=== PATIENT | female | born 1955 | race Caucasian/White ===

== ENCOUNTER → 2020-03-31 12:13 | Outpatient (CLI) | payer OTHER, SELFPAY ==
--- NOTE | ~2020-03-31 | DEXA_ITS ---
Bone Density Report Name: Hamida Dalton Age: 64 Sex: Female Ethnicity: White Date of : 1955 Indication: osteopenia; postmenopausal Referring Provider: Osvaldo Singh Study: Bone densitometry was performed. Exam Date: March 31, 2020 Accession number: [id number] Bone Density: Region BMD T-score Z-score Classification AP Spine (L1-L4) 0.833 -1.9 -0.3 Osteopenia Femoral Neck (Left) 0.561 -2.6 -1.1 Osteoporosis Total Hip (Left) 0.783 -1.3 -0.1 Osteopenia Femoral Neck (Right) 0.603 -2.2 -0.8 Osteopenia Total Hip (Right) 0.811 -1.1 0.1 Osteopenia Total Hip Mean 0.797 -1.2 0.0 Osteopenia World Health Organization criteria for BMD impression classify patients as: Normal (T-score at or above -1.0), Osteopenia (T-score between -1.0 and -2.5), or Osteoporosis (T-score at or below -2.5). 10-year Fracture Risk: FRAX not reported because: Some T-score for Spine Total or Hip Total or Femoral Neck at or below -2.5 Previous Exams: Region Exam Age BMD T-score BMD Change BMD Change Date g/cm2 vs Baseline vs Previous AP Spine(L1-L4) 03/31/2020 64 0.833 -1.9 0.019 0.019 01/10/2018 62 0.813 -2.1 Total Hip(Left) 03/31/2020 64 0.783 -1.3 0.011 0.011 01/10/2018 62 0.772 -1.4 Total Hip(Right) 03/31/2020 64 0.811 -1.1 0.020 0.020 01/10/2018 62 0.790 -1.2 *Denotes significance at 95% confidence level, LSC for AP Spine = 0.022 g/cm2, LSC for Total Hip = 0.027 g/cm2 Clinical Information Provided by Patient: Has used the following medications: Boniva (i.e. ibandronate), Prolia (i.e. denosumab), Vitamin D, Calcium Patient maximum height was 71.75 Menopause Age: 56 Onset of menses at age 15 Number of children 3 Impression: The patient has osteoporosis, based on the Left Femoral Neck T-score. No significant bone loss was observed. Discussion: INCREASED RISK OF FRACTURE. BONE DENSITY IS UNDESIRABLY LOW AT ONE OR MORE SKELETAL SITES, CONSISTENT WITH POSTMENOPAUSAL OSTEOPOROSIS. This patient's lowest T-score meets the World Health Organization's (WHO) criteria for osteoporosis at one or more sites (T-score -2.5 or below). In untreated patients, the risk of osteoporotic fracture increases approximately two-fold for each 1.0 SD decrease in T-score. Low bone density is not the only risk factor for fracture; also consider factors such as patient's age, frailty or poor health, risk of falling, risk of inju
== END ==
PROVIDERS: PCP Family Medicine; Visit Provider Family Medicine
DX: M85.88 Other specified disorders of bone density and structure, other site (principal); M85.852 Other specified disorders of bone density and structure, left thigh; M85.851 Other specified disorders of bone density and structure, right thigh; M81.0 Age-related osteoporosis without current pathological fracture
CPT/HCPCS: 77080

== ENCOUNTER → 2020-04-17 12:40 | Outpatient (CLI) | payer OTHER, SELFPAY ==
--- NOTE | ~2020-04-17 | MM_ITS ---
EXAMINATION: MM screening gab BI w karen HISTORY: Screening mammogram TECHNIQUE: Craniocaudal and mediolateral oblique 3-D tomosynthesis images were obtained and synthetic 2-D images were generated. CAD analysis was submitted and interpreted. COMPARISON: 01/02/2016, 10/11/2014, 04/13/2013 bilateral digital screening mammogram examinations BREAST PARENCHYMAL COMPOSITION: The breasts are heterogeneously dense, which may obscure small masses FINDINGS: Approximately 3.4 x 5.8 mm mass is noted at mid depth in the mid to upper inner right breas t (craniocaudal Tomosynthesis image 40/69). Additional suggested 1 cm mass in the upper right breast (MLO Tomosynthesis image 25/69). Additional suspected 10 mm mass in the lower left breast (MLO Tomosynthesis image 29/66). Bilateral diagnostic mammography and complete bilateral breast ultrasound examination are recommended . IMPRESSION: 1. Bilateral breast masses are suggested 2. Bilateral diagnostic mammography and complete bilateral breast ultrasound examination are recommen ded BI-RADS Category 0: Incomplete: Needs additional imaging evaluation. Reviewed, dictated and finalized at location A. Y OUT CLERK IMPRESSION: 1. Bilateral breast masses are suggested 2. Bilateral diagnostic mammography and complete bilateral breast ultrasound ex amination are recommended BI-RADS Category 0: Incomplete: Needs additional imaging evaluation.
== END ==
PROVIDERS: PCP Family Medicine; Visit Provider Family Medicine
DX: Z12.31 Encounter for screening mammogram for malignant neoplasm of breast (principal); R92.8 Other abnormal and inconclusive findings on diagnostic imaging of breast
CPT/HCPCS: 77063; 77067

== ENCOUNTER → 2020-05-14 09:43 | Outpatient (CLI) | payer OTHER, SELFPAY ==
--- NOTE | ~2020-05-14 | MMUS_ITS ---
EXAMINATION: MM diagnostic mammo BI, US breast BI complete HISTORY: Bilateral breast masses reported on bilateral digital screening mammogram TECHNIQUE: Additional 3-D full-field ML and spot tomosynthesis images of both breasts were performed and synthetic 2-D images were generated. Rolled medial and lateral craniocaudal views of right breast . CAD analysis was submitted and interpreted. High resolution complete bilateral breast ultrasound wa s performed. COMPARISON: 04/17/2020 bilateral digital screening mammogram FINDINGS: MAMMOGRAPHIC FINDINGS: Bilateral benign calcifications are noted. Bilateral fibroglandular asymmetry. Previously reported 3.4 x 5.8 mm mass suggested at mid depth in the mid to upper inner right breast a ppears less distinct on these supplemental mammographic views. Heterogeneous dense stroma may obscure masses. Bilateral complete breast ultrasound examination there fore was performed. ULTRASOUND: Left breast 6:00 subareolar area: 5.4 x 9.2 mm parallel circumscribed hypoechoic lesion with evidence of some posterior enhancement, likely a cyst There is a prominent focal area of shadowing of the left breast at 9'clock 3 cm from nipple correspon ding to a heavily calcified fibroadenoma. There are scattered bilateral subcentimeter hypoechoic areas in each breast without suspicious purchasing internship al vascularity or shadowing. No apparent suspicious mass or shadowing of either breast is detected. IMPRESSION: 1. Probable benign findings 2. 6 month diagnostic bilateral mammogram and bilateral breast ultrasound follow-up is recommended BI-RADS category 3, probably benign findings. Reviewed, dictated and finalized at location A. HET MACHINE OPERATOR IMPRESSION: 1. Probable benign findings 2. 6 month diagnostic bilateral mammogram and bilateral breast ultrasound follo w-up is recommended BI-RADS category 3, probably benign findings.
== END ==
PROVIDERS: PCP Family Medicine; Visit Provider Physician Assistant
DX: R92.8 Other abnormal and inconclusive findings on diagnostic imaging of breast (principal)
CPT/HCPCS: 76641; 77066

== ENCOUNTER → 2020-12-29 14:15 | Outpatient (CLI) | payer OTHER, SELFPAY ==
--- NOTE | ~2020-12-29 | MMUS_ITS ---
EXAMINATION: MM diagnostic gab BI w karen, US breast BI complete HISTORY: Six-month follow-up of probable benign findings TECHNIQUE: ML, MLO and craniocaudal full field and spot 3-D tomosynthesis images of post breast were performed and synthetic 2-D images were generated. Bilateral rotated lateral cc views. CAD analysis w as submitted and interpreted. High resolution complete bilateral breast ultrasound including all 4 qu adrants and subareolar areas was performed. COMPARISON: 05/14/2020 diagnostic bilateral mammogram and bilateral complete breast ultrasound BREAST PARENCHYMAL COMPOSITION: The breasts are heterogeneously dense, which may obscure small masses . FINDINGS: MAMMOGRAPHIC FINDINGS: Stable fibroglandular asymmetry. Several benign calcifications. No interval suspicious mass or new architectural distortion, malignant calcification, skin thickening or retraction of either breast is detected. ULTRASOUND: No suspicious solid lesion or shadowing of either breast is detected. Right breast: 9:00 4 cm from nipple: 2.3 mm cyst 10:00 6 cm from nipple: 2.7 mm cyst 11:00 3 cm from nipple: Parallel circumscribed 3.7 x 2.9 x 5.5 mm sonolucency with through transmissi on posterior enhancement, consistent with cyst Subareolar 2.6 x 4.4 mm cyst Left breast: Parallel circumscribed 5.3 x 2.7 x 5.2 mm sonolucency with through transmission, consistent with cyst 7:00 2 cm from nipple: Parallel circumscribed 3.6 x 2.6 x 4.3 mm sonolucency with through transmissio n, consistent with cyst 9:00 3 cm from nipple: Prominent calcification with shadowing Left breast subareolar 8.3 x 5.5 x 8.1 mm circumscribed parallel hypoechoic lesion with through trans mission, likely benign IMPRESSION: 1. Benign findings; no mammographic evidence of malignancy 2. Routine annual mammographic screening is recommended. BI-RADS Category 2: Benign finding(s). Reviewed, dictated and finalized at location A. IMPRESSION: 1. Benign findings; no mammographic evidence of malignancy 2. Routine annual mammographic screening is recommended. BI-RADS Category 2: Benign finding(s).
== END ==
PROVIDERS: PCP Family Medicine; Visit Provider Family Medicine
DX: N60.09 Solitary cyst of unspecified breast (principal); R92.8 Other abnormal and inconclusive findings on diagnostic imaging of breast
CPT/HCPCS: 76641; 77062; 77066; G0279

== ENCOUNTER → 2021-02-09 10:12 | Outpatient (NON) | payer OTHER, SELFPAY ==
[2019-11-21 18:28] LABS: SARS-CoV-2 RNA PCR Negative
== END | disposition home or self-care (01) ==
PROVIDERS: Visit Provider Family Medicine
DX: Z20.828 Contact with and (suspected) exposure to other viral communicable diseases (principal)
CPT/HCPCS: 87635; C9803; U0003

== ENCOUNTER → 2021-04-01 11:04 | Outpatient (CLI) | payer OTHER, SELFPAY ==
--- NOTE | ~2021-04-01 | XR_ITS ---
XR cervical spine min 6V DATE: 04/01/2021 11:40 INDICATION: Neck pain TECHNIQUE: AP, open-mouth, odontoid, lateral, swimmer's and bilateral oblique views COMPARISON: 11/18/2016 cervical spine FINDINGS: Diffuse osteopenia. Cervical curvature is intact. There is minimal anterolisthesis at C4-5, stable since 11/18/2016. Moderately severe degenerative disc disease at C5-6 and C6-7. There is uncovertebral joint spurring at C5-6 and C6-7, encroaching upon the C6 and C7 neural foramin a. There is degenerative change at the apophyseal joints. No fracture or dislocation or locked facet or prevertebral soft tissue swelling. C1 and C2 are normal ly aligned and the odontoid process appears intact. IMPRESSION: Mild anterolisthesis at C4-5, stable since 11/18/2016 Moderately severe degenerative disease and uncovertebral joint spurring at C5-6 and C6-7 Reviewed, dictated and finalized at location A. EW ASSISTANT
== END ==
PROVIDERS: PCP Family Medicine; Visit Provider Family Medicine
DX: M47.812 Spondylosis without myelopathy or radiculopathy, cervical region (principal)
CPT/HCPCS: 72052

== ENCOUNTER → 2022-01-04 11:45 | Outpatient (CLI) | payer OTHER, SELFPAY ==
--- NOTE | ~2022-01-04 | MM_ITS ---
EXAMINATION: MM screening gab BI w karen HISTORY: Screening TECHNIQUE: Craniocaudal and mediolateral oblique 3-D tomosynthesis images were obtained and synthetic 2-D images were generated. CAD analysis was submitted and interpreted. COMPARISON: Comparison to multiple prior studies sequentially, with oldest reviewed study dated 12/06. BREAST PARENCHYMAL COMPOSITION: The breasts are heterogeneously dense, which may obscure small masses FINDINGS: There are developing asymmetries in the upper outer quadrant of the right breast as well as the upper outer and lower inner quadrants of the left breast. IMPRESSION: 1. Developing bilateral breast asymmetries. 2. Additional mammographic views and possible breast ultrasound are recommended. BI-RADS Category 0: Incomplete: Needs additional imaging evaluation. Reviewed, dictated and finalized at location A. IMPRESSION: 1. Developing bilateral breast asymmetries. 2. Additional mammographic views and possible breast ultrasound are recommended . BI-RADS Category 0: Incomplete: Needs additional imaging evaluation.
== END ==
PROVIDERS: PCP Family Medicine; Visit Provider Physician Assistant
DX: Z12.31 Encounter for screening mammogram for malignant neoplasm of breast (principal); R92.8 Other abnormal and inconclusive findings on diagnostic imaging of breast
CPT/HCPCS: 77063; 77067

== ENCOUNTER → 2022-01-26 13:07 | Outpatient (CLI) | payer OTHER, SELFPAY ==
--- NOTE | ~2022-01-26 | MMUS_ITS ---
EXAMINATION: MM diagnostic gab BI w karen, US breast BI complete HISTORY: Developing bilateral breast asymmetries reported on 01/04/2022 screening mammogram TECHNIQUE: Additional 3-D tomosynthesis images of both breasts were performed and synthetic 2-D image s were generated. CAD analysis was submitted and interpreted. Bilateral rotated lateral craniocaudal views. High resolution bilateral complete breast ultrasound examination including all 4 quadrants and subare olar areas was performed. COMPARISON: 01/04/2022 bilateral screening mammogram 12/29/2020 bilateral diagnostic mammography and complete bilateral breast ultrasound 05/14/2020 bilateral diagnostic mammography and complete bilateral breast ultrasound 04/17/2020 bilateral screening mammogram BREAST PARENCHYMAL COMPOSITION: The breasts are heterogeneously dense, which may obscure small masses . FINDINGS: MAMMOGRAPHIC FINDINGS: Stable bilateral fibroglandular asymmetry. There is history of previous 9 right lumpectomy. No interv al suspicious mass or new architectural distortion, malignant calcification, skin thickening or retra ction is evident. ULTRASOUND: Right breast: 9:00 4 cm from nipple: 2.5 x 2.8 x 3.2 mm parallel hypoechoic lesion without internal vascularity or posterior shadowing 10:00 6 cm from nipple: Parallel circumscribed sonolucency measuring 1.8 x 2.2 x 2.3 mm, most likely a small cyst 11:00 6 cm from nipple: Parallel circumscribed sonolucency measuring 1.9 x 3 mm, likely a small cyst 11:00 1 cm from nipple: Parallel circumscribed hypoechoic 5.7 x 4.2 x 2.9 mm lesion without internal vascularity or posterior shadowing Left breast: 2:00 4 cm from nipple: Parallel circumscribed hypoechoic 3.4 x 5.9 x 5.9 mm lesion without internal v ascularity or posterior shadowing, benign in appearance 7:00 subareolar area: 6.4 x 6.8 x 6.1 mm sonolucency with through transmission, most likely a cyst 10:00 4 cm from nipple: Prominent calcification with shadowing IMPRESSION: 1. Benign findings; no mammographic evidence of malignancy 2. Routine annual mammographic screening is recommended. BI-RADS Category 2: Benign finding(s). Reviewed, dictated and finalized at location A. L AND PLASTIC HEATER IMPRESSION: 1. Benign findings; no mammographic evidence of malignancy 2. Routine annual mammographic screening is recommended. BI-RADS Category 2: Benign finding(s).
== END ==
PROVIDERS: PCP Physician Assistant; Visit Provider Physician Assistant
DX: R92.8 Other abnormal and inconclusive findings on diagnostic imaging of breast (principal)
CPT/HCPCS: 76641; 77062; 77066; G0279

== ENCOUNTER → 2022-04-02 09:58 | Outpatient (CLI) | payer OTHER, SELFPAY ==
--- NOTE | ~2022-04-02 | DEXA_ITS ---
Bone Density Report Name: SHE REDMOND Age: 66 Sex: Female Ethnicity: White Date of : 1955 Indication: osteopenia; monitoring treatment; postmenopausal Referring Provider: Daron Montejo Study: Bone densitometry was performed. Exam Date: April 02, 2022 Accession number: [id number] Bone Density: Region BMD T-score Z-score Classification AP Spine (L1-L4) 0.859 -1.7 0.1 Osteopenia Femoral Neck (Left) 0.532 -2.9 -1.3 Osteoporosis Total Hip (Left) 0.773 -1.4 -0.1 Osteopenia Femoral Neck (Right) 0.596 -2.3 -0.7 Osteopenia Total Hip (Right) 0.812 -1.1 0.2 Osteopenia Total Hip Mean 0.793 -1.3 0.1 Osteopenia World Health Organization criteria for BMD impression classify patients as: Normal (T-score at or above -1.0), Osteopenia (T-score between -1.0 and -2.5), or Osteoporosis (T-score at or below -2.5). 10-year Fracture Risk: FRAX not reported because: Some T-score for Spine Total or Hip Total or Femoral Neck at or below -2.5 Treated for osteoporosis Previous Exams: Region Exam Age BMD T-score BMD Change BMD Change Date g/cm2 vs Baseline vs Previous AP Spine(L1-L4) 04/02/2022 66 0.859 -1.7 0.045* 0.026* 03/31/2020 64 0.833 -1.9 0.019 0.019 01/10/2018 62 0.813 -2.1 Total Hip(Left) 04/02/2022 66 0.773 -1.4 0.001 -0.010 03/31/2020 64 0.783 -1.3 0.011 0.011 01/10/2018 62 0.772 -1.4 Total Hip(Right) 04/02/2022 66 0.812 -1.1 0.021 0.001 03/31/2020 64 0.811 -1.1 0.020 0.020 01/10/2018 62 0.790 -1.2 *Denotes significance at 95% confidence level, LSC for AP Spine = 0.022 g/cm2, LSC for Total Hip = 0.027 g/cm2 Clinical Information Provided by Patient: Is being treated for osteoporosis Has used the following medications: Prolia (i.e. denosumab), Vitamin D, Calcium, MTV, LEVOTHYROXINE Patient maximum height was 71.75 Menopause Age: 56 Does not regularly consume dairy products Onset of menses at age 15 Number of children 3 Impression: The patient has osteoporosis, based on the Left Femoral Neck T-score. No significant bone loss was observed. Discussion: PATIENT UNDER TREATMENT WITH NO SIGNIFICANT BMD LOSS SINCE LAST EXAM. In an untreated patient, BMD typically declines with age. A lack of decline or gain is usually a sign that treatment is efficacious and fracture risk is reduced. It is important to a
== END ==
PROVIDERS: PCP Physician Assistant; Visit Provider Physician Assistant
DX: M81.0 Age-related osteoporosis without current pathological fracture (principal)
CPT/HCPCS: 77080

== ENCOUNTER 2022-04-22 00:50 | Day surgery (SDC) | payer OTHER, SELFPAY ==
[2022-04-08 13:04] VITALS: BMI 21.5
[2022-04-22 07:18] VITALS: BP 124/66; PULSE 98; RESP 18; TEMP 36.5; O2SAT 99
--- NOTE | 2022-04-22 07:21 | WPDANESEPPF ---
Anes - Initial Pre Proc Eval Procedure: Operation Date: 04/22/22 08:30 Proposed Procedures p Colonoscopy - Steve Sinclair MD Date/Time: 04/22/22 07:21 Surgeon: Steve Sinclair MD Pre Op Diagnosis: change in bowel habits, diarrhea Patient Data Age: 66 Gender: F Height: 1.8 m Weight: 67.7 kg Last Vital Signs Temp 36.5 C 04/22/22 07:18 Pulse 98 04/22/22 07:18 Resp 18 04/22/22 07:18 BP 124/66 04/22/22 07:18 Pulse Ox 99 04/22/22 07:18 O2 Del Method Room Air 04/22/22 07:18 Allergies Allergy/AdvReac Type Severity Reaction Status Date / Time No Known Allergies Allergy Verified 04/22/22 07:14 Home Medications Medication Instructions Recorded Confirmed Type eluxadoline 100 mg tablet (Viberzi) 100 mg PO BID #60 tabs 02/25/22 04/08/22 Rx calcium 600 mg capsule 600 mg PO DAILY 04/08/22 04/08/22 History cholecalciferol (vitamin D3) 25 25 mcg PO DAILY 04/08/22 04/08/22 History mcg (1,000 unit) tablet hyoscyamine sulfate 0.125 mg 0.125 mg PO QID PRN abd pain 04/08/22 04/08/22 History sublingual tablet levothyroxine 112 mcg tablet 112 mcg PO DAILY 04/08/22 04/08/22 History magnesium 500 mg tablet 500 mg PO DAILY 04/08/22 04/08/22 History mecobalamin (vitamin B12) 1,000 1,000 mcg PO DAILY 04/08/22 04/08/22 History mcg chewable tablet multivitamin with minerals-folic 1 tablet PO DAILY 04/08/22 04/08/22 History acid 0.4 mg tablet sodium,potassium,mag sulfates 17.5 See Rx Instructions PO .COMPLEX 04/08/22 Rx gram-3.13 gram-1.6 gram oral soln #354 mL (Suprep Bowel Prep Kit) vitamins A,C,F-dkwj-wozwlp 4,296 1 cap PO BID 04/08/22 04/08/22 History mcg-226 mg-90 mg capsule (PreserVision AREDS) Patient hx anesthesia problems: none Family hx anesthesia problems: none Results Review: All pre-operative results and documents have been reviewed as part of the pre-operative evaluation. [facility] Past Medical History Medical History Hypothyroid Osteoporosis Surgical History Surgical History H/O colonoscopy (~03/2018) Family History Family History Father Hypertension Mother Family history of emphysema Son Hypertension Social History Social History Smoking status: Never smoker Alcohol intake: current Drinks per week: 4 Substance use type: does not use Lack of Transportation: No Lack of Food: Never True Current Housing: I Have Housing Concerned About Future Housing: No Difficulty Paying Gas/Electric Bills: No Difficulty Paying for Meds: No Currently Unemployed: No Education: Master's Degree or Higher Difficulty w/ Childcare or Family Care: No Living arrangements: with family Spiritual care concerns: No Anes - Eval Final PreProcedure Day of Procedure 04/22/22 07:21 Patient weight: normal Heart: regular rate and rhythm Lungs: clear to auscultation Airway: Mallampati scale class II Neurological: alert and oriented Last oral intake: >/= 8 hours ASA classification: II Emergent: no Anesthetic plan: proceed Anesthesia type and monitoring: general GIVS and standard monitoring Results Review: All pre-operative results and documents have been reviewed as part of the pre-operative evaluation. Informed Consent: The patient's anesthetic plan and its attendant risks and benefits were discussed with the patient/family/POA. Questions were solicited and answers provided to the satisfaction of the patient/family/POA.
[2022-04-22] MEDS: LACTATED RINGERS 1,000 ML 150 ML IV CONT (07:29)
--- NOTE | 2022-04-22 07:29 | WPDHPUPDATE1 ---
History and Physical Update Update Date/Time: 04/22/22 07:29 History and Physical has been reviewed, including an updated exam of the patient. There are NO changes in the patient's condition. Risks, benefits, and alternatives have been discussed and questions answered. Patient agrees to proceed with procedure.
[2022-04-22 08:47] VITALS: BP 138/58; PULSE 67; RESP 20; O2SAT 98
[2022-04-22 08:57] VITALS: BP 123/66; PULSE 76; RESP 19; O2SAT 98
[2022-04-22 09:07] VITALS: BP 134/60; PULSE 66; RESP 18; O2SAT 100
== END 2022-04-22 09:10 | disposition home or self-care (01) ==
PROVIDERS: PCP Physician Assistant; Visit Provider Internal Medicine Gastroenterology
PROC: 0DJD8ZZ Inspection of Lower Intestinal Tract, Via Natural or Artificial Opening Endoscopic (ICD-10-PCS; CPT 45378; principal; 2022-04-22 08:30)
DX: R19.4 Change in bowel habit (principal); E03.9 Hypothyroidism, unspecified; M81.0 Age-related osteoporosis without current pathological fracture
CPT/HCPCS: 45380; 88305; J2704; J7120

== ENCOUNTER → 2023-03-09 10:10 | Outpatient (CLI) | payer OTHER, SELFPAY ==
--- NOTE | ~2023-03-09 | MM_ITS ---
EXAMINATION: MM screening gab BI w karen HISTORY: Screening mammogram TECHNIQUE: Craniocaudal and mediolateral oblique 3-D tomosynthesis images were obtained and synthetic 2-D images were generated. CAD analysis was submitted and interpreted. COMPARISON: 01/26/2022, 01/04/2022, 12/29/2020, 05/14/2020, 04/17/2020 BREAST PARENCHYMAL COMPOSITION: The breasts are heterogeneously dense, which may obscure small masses . FINDINGS: Scattered benign-appearing calcifications are present. No suspicious mass, calcification, o r architectural distortion are identified in either breast to suggest malignancy. There has been no s uspicious interval change. IMPRESSION: 1. No mammographic evidence of malignancy. 2. Recommend routine screening mammography in one year. BI-RADS Category 2: Benign finding(s). Reviewed, dictated and finalized at location A. MOBILE LIGHTS ASSEMBLER
== END ==
PROVIDERS: PCP Physician Assistant; Visit Provider Physician Assistant
DX: Z12.31 Encounter for screening mammogram for malignant neoplasm of breast (principal)
CPT/HCPCS: 77063; 77067

== ENCOUNTER 2023-05-16 13:31 | Outpatient (CLI) | payer OTHER, SELFPAY ==
--- NOTE | 2023-05-18 13:55 | WPDHOLTEREM ---
Holter/Event Monitor Holter/Event Monitor Date of procedure: 05/16/23 Holter/Event Procedure: 24 Hr Holter Monitor Indications: Palpitations Conclusion: 1. 24 hour holter monitor on 05/16/23. 2. Underlying rhythm is sinus rhythm. HR range 55-146 bpm; average 80 bpm. HR at 146 bpm was at 19:23. 3. There are 25 premature supraventricular complexes and 2 supraventricular couplets. No supraventricular tachycardia. 4. There are 73 premature ventricular complexes. No ventricular tachycardia. 5. No sinoatrial or atrioventricular blocks. No significant pauses greater than 2 seconds. 6. No symptoms available for correlation.
== END 2023-05-16 13:32 | disposition home or self-care (01) ==
LOC: ANHCARD 13:33
PROVIDERS: PCP Physician Assistant
DX: R00.2 Palpitations (principal)
CPT/HCPCS: 93225; 93226

== ENCOUNTER 2024-06-22 11:31 | Outpatient (CLI) | payer MEDICARE, SELFPAY ==
--- NOTE | ~2024-06-22 | MM_ITS ---
EXAMINATION: MM screening gab BI w karen HISTORY: Screening TECHNIQUE: Craniocaudal and mediolateral oblique 3-D tomosynthesis images were obtained and synthetic 2-D images were generated. CAD analysis was submitted and interpreted. COMPARISON: Comparison to multiple prior studies sequentially, with oldest reviewed study dated 04/17. BREAST PARENCHYMAL COMPOSITION: Dense: The breasts are heterogeneously dense, which may obscure small masses FINDINGS: Bilateral breast asymmetries and left breast mass in the lower central left breast are stab le compared with prior studies. No new masses, calcifications or architectural distortion in either b reast. There has been no suspicious interval change. IMPRESSION: 1. No mammographic evidence of malignancy. 2. Recommend routine screening mammography in one year. BI-RADS Category 2: Benign finding(s). Reviewed, dictated and finalized at location B.
== END 2024-06-22 11:32 | disposition home or self-care (01) ==
LOC: MICIMG 11:32
PROVIDERS: PCP Family Medicine; Visit Provider Family Medicine
DX: Z12.31 Encounter for screening mammogram for malignant neoplasm of breast (principal)
CPT/HCPCS: 77063; 77067

== ENCOUNTER 2024-08-06 14:09 | Outpatient (CLI) | payer MEDICARE, SELFPAY ==
--- NOTE | ~2024-08-06 | DEXA_ITS ---
Bone Density Report Name: SHE REDMOND Age: 69 Sex: Female Ethnicity: White Date of : 1955 Indication: postmenopausal; screening for osteoporosis; height loss; Referring Provider: LUIS ALBERTO ROMAN Study: Bone densitometry was performed. Exam Date: August 06, 2024 Accession number: [id number] Bone Density: Region BMD T-score Z-score Classification AP Spine(L1-L4) 0.848 -1.8 0.2 Osteopenia Femoral Neck (Left) 0.541 -2.8 -1.1 Osteoporosis Total Hip (Left) 0.765 -1.5 -0.1 Osteopenia Femoral Neck (Right) 0.578 -2.4 -0.8 Osteopenia Total Hip (Right) 0.780 -1.3 0.1 Osteopenia Femoral Neck Mean 0.560 -2.6 -0.9 Osteoporosis Total Hip Mean 0.772 -1.4 0.0 Osteopenia World Health Organization criteria for BMD impression classify patients as: Normal (T-score at or above -1.0), Osteopenia (T-score between -1.0 and -2.5), or Osteoporosis (T-score at or below -2.5). 10-year Fracture Risk: FRAX not reported because: Some T-score for Spine Total or Hip Total or Femoral Neck at or below -2.5 Treated for osteoporosis Clinical Information Provided by Patient: Is being treated for osteoporosis Has used the following medications: Prolia (i.e. denosumab), Vitamin D, Calcium Patient maximum height was 71 Does not regularly consume dairy products Onset of menses at age 15 Number of children 3 Impression: The patient has osteoporosis, based on the Left Femoral Neck T-score. Discussion: It is important to ask patients whether they are taking their medications and to encourage continued and appropriate compliance with their osteoporosis therapies to reduce fracture risk. It is also important to review their risk factors and encourage appropriate calcium and vitamin D intakes, exercise, fall prevention and other lifestyle measures. Follow-Up: Consider a repeat BMD and Vertebral Fracture Assessment (VFA) exam in 2 years or sooner if medically necessary, to reassess this patient's status. Reported by: MADELEINE on 08/06/2024 2:29:00 PM. Reviewed, dictated and finalized at location A.
== END 2024-08-06 14:10 | disposition home or self-care (01) ==
PROVIDERS: PCP Family Medicine; Visit Provider Nurse Practitioner Family
DX: Z78.0 Asymptomatic menopausal state (principal); M85.89 Other specified disorders of bone density and structure, multiple sites; M81.0 Age-related osteoporosis without current pathological fracture
CPT/HCPCS: 77080

== ENCOUNTER 2025-01-10 11:13 | Observation (INO) | payer MEDICARE, SELFPAY ==
[2025-01-10] VITALS (24 sets, daily range): BP systolic 95–127; BP diastolic 51–97; PULSE 72–161; RESP 12–20; TEMP 36.6–36.8; O2SAT 95–100; BMI 20.6
--- NOTE | ~2025-01-10 | XR_ITS ---
Examination: XR chest 2V Clinical History: palpitations Comparison: None Technique: PA and Lateral Findings: Cardiomediastinal silhouette normal size and configuration. Lungs clear. Mild hyperinflation, probable emphysema. No acute bony abnormality. IMPRESSION: 1. No acute cardiopulmonary findings. Reviewed, dictated and finalized at location R. D ARTILLERY CANNONEER
--- NOTE | 2025-01-10 11:27 | ECG_ITS ---
Test Date: 2025-01-10 11:19:15 Measurements Intervals Ney Rate: 155 P: 0 NM: 0 QRS: 95 QRSD: 85 T: 70 QT: 272 QTc: 438 Interpretive Statements SUPRAVENTRICULAR TACHYCARDIA VS ATRIAL TACHYCARDIA INDETERMINATE AXIS POSSIBLE RIGHT VENTRICULAR CONDUCTION DELAY [RSR (QR) IN V1/V2] MODERATE ST DEPRESSION [0.05+ mV ST DEPRESSION] CRITICAL TEST RESULT No previous ECG available for comparison Electronically Signed On 01-10-2025 11:34:06 AFFILIATE MANAGER by Kevin Pizano M.D.
[2025-01-10] MEDS: METOPROLOL TARTRATE INJ 5 MG/5 ML VIAL IV PUSH ×2 (11:31→14:24)
[2025-01-10] MEDS: SODIUM CHLORIDE 0.9% IV 1,000 ML 999 ML IV CONT ×2 (11:31→13:34)
[2025-01-10 11:41] LABS: Hematocrit 38.7 % (37.0-47.0); Hemoglobin 12.9 g/dL (12.0-15.0); Immature Granulocyte Percent A 0.3 % (0-0.5); Lymphocytes Absolute Auto 1.91 K/mm3 (0.9-3.2); Mean Corpuscular HGB Conc 33.3 g/dl (32-36); Mean Corpuscular Hemoglobin 30.3 pg (26-34); Mean Corpuscular Volume 90.8 fl (80-100); Nucleated Red Blood Cells Absolute Auto 0.000 K/mm3 (0.0-0.012); Nucleated Red Blood Cells Perc 0.0 % (0.0-0.2); Platelet Count Result 288 k/mm3 (150-375); Red Blood Count 4.26 M/mm3 (4.2-5.4); White Blood Count 7.7 K/mm3 (4.5-10.0)
--- NOTE | 2025-01-10 11:41 | ED.ARRPALP ---
HPI - Arrhythmia/Palpitations General Chief Complaint: Arrhythmia/Palpitations <Khushboo Elder PA-C - Last Filed: 01/10/25 19:15> Stated Complaint: svt <Khushboo Elder PA-C - Last Filed: 01/10/25 19:15> Time Seen by Provider: 01/10/25 11:30 <Khushboo Elder PA-C - Last Filed: 01/10/25 19:15> Source: patient <Khushboo Elder PA-C - Last Filed: 01/10/25 19:15> Mode of arrival: ambulatory <Khushboo Elder PA-C - Last Filed: 01/10/25 19:15> Limitations: no limitations <Khushboo Elder PA-C - Last Filed: 01/10/25 19:15> History of Present Illness HPI narrative: This is a 69 year old female that presents to the ER for palpitations. Was at her doctor's office for a routine follow up visit and noted that her heart rate was elevated. Sent to the ER for further evaluation. She does report feeling her heart racing. Denies chest pain or shortness of breath. <Khushboo Elder PA-C - Last Filed: 01/10/25 19:15> Related Data Home Medications: Home Medications ?Medication ?Instructions ?Recorded ?Confirmed ?Last Taken ?Type calcium 600 mg capsule 600 mg PO HS 04/08/22 01/10/25 01/09/25 History cholecalciferol (vitamin D3) 25 25 mcg PO HS 04/08/22 01/10/25 01/09/25 History mcg (1,000 unit) tablet magnesium 500 mg tablet 500 mg PO HS 04/08/22 01/10/25 01/09/25 History mecobalamin (vitamin B12) 1,000 1,000 mcg PO HS 04/08/22 01/10/25 01/09/25 History mcg chewable tablet multivitamin with minerals-folic 1 tablet PO HS 04/08/22 01/10/25 01/09/25 History acid 0.4 mg tablet vitamins A,C,O-mgob-ngyuul 4,296 1 cap PO .q12hr 05/25/22 01/10/25 01/10/25 History mcg-226 mg-90 mg capsule (PreserVision AREDS) eluxadoline 100 mg tablet (Viberzi) 100 mg PO .pc BID 01/10/25 01/10/25 01/10/25 History <Khushboo Elder PA-C - Last Filed: 01/10/25 19:15> Allergies/Adverse Reactions: Allergies Allergy/AdvReac Type Severity Reaction Status Date / Time lactose AdvReac Mild Diarrhea Verified 01/10/25 18:00 <Khushboo Elder PA-C - Last Filed: 01/10/25 19:15> Review of Systems Review of Systems: All systems reviewed & are unremarkable except as noted in HPI and below <Khushboo Elder PA-C - Last Filed: 01/10/25 19:15> [facility] Past Medical History Medical History: Medical History (Updated 01/10/25 @ 19:14 by Khushboo Elder PA-C) Osteoporosis failed ibandronate/ failed prolia 2020/ reclast Hypothyroid <Khushboo Elder PA-C - Last Filed: 01/10/25 19:15> Surgical History Surgical History: Surgical History H/O colonoscopy (~03/2018) <Khushboo Elder PA-C - Last Filed: 01/10/25 19:15> Family History Family History: Family History Father Hypertension Mother Family history of emphysema Son Hypertension <Khushboo Elder PA-C - Last Filed: 01/10/25 19:15> Social History Social History: Social History Smoking status: Never smoker Alcohol intake: current Alcohol use details: socially Substance use: never Substance use type: does not use Do You Feel Safe in your Home?: Yes Lack of Transportation: No Lack of Food: Never True Current Housing: I Have Housing Concerned About Future Housing: No Difficulty Paying Gas/Electric Bills: No Difficulty Paying for Meds: No Currently Unemployed: No Education: Master's Degree or Higher Difficulty w/ Childcare or Family Care: No Living arrangements: with family Spiritual care concerns: No <HARPAL Franks Last Filed: 01/10/25 19:15> Exam Narrative: GENERAL: Well-appearing, well-nourished, and in no acute distress. HEAD: Normocephalic, atraumatic. EYES: EOMI. ENT: Nares clear, no rhinorrhea or epistaxis. Mucous membranes moist. Oropharynx without tonsillar hypertrophy exudate or other lesions. CHEST: Clear to auscultation. No respiratory distress. No wheezes rales or rhonchi HEART: Tachycardic, regular rate. No murmur heard. Normal peripheral pulses. EXTREMITIES: Normal range of motion. No edema. SKIN: Warm, dry, no rash. NEURO: No focal deficits. Alert and oriented x3. PSYCH: Normal mood and affect <Khushboo Elder PA-C - Last Filed: 01/10/25 19:15> Course Course Emergency Course: Patient did eventually convert to sinus rhythm just before going upstairs to her bed <HARPAL Franks Last Filed: 01/10/25 19:15> DOG LICENSER/PA Physician Supervision I did note that patient was in an atrial arrhythmia with RVR upon signing the EKG and was informed she was being roomed. PA saw patient immediately. It was reported that her heart rate only improved transiently and I did note that she was again in RVR on telemetry monitoring. An additional dose was given in I did encourage the PA to change the intervals on the EKG if there was any question however she subsequently converted based on telemetry monitoring and the EKG that was then obtained. Still reasonable to admit given her rate had been 150s and briefly 160s and her PO conversion needs will have to be assessed. I was involved in patient care in this way although did not directly examine her physically. <Leela Bhakta MD - Last Filed: 01/10/25 20:54> Consultations Consultation #1: Spoke with cardiology who will consult <HARPAL Franks Last Filed: 01/10/25 19:15> Date: 01/10/25 <HARPAL Franks Last Filed: 01/10/25 19:15> Vital Signs Vital signs: Vital Signs Temperature 98.2 F 01/10/25 11:24 Pulse Rate 161 H 01/10/25 11:24 Respiratory Rate 13 01/10/25 11:24 Blood Pressure 117/94 H 01/10/25 11:24 Pulse Oximetry 100 01/10/25 11:24 Oxygen Delivery Room Air 01/10/25 11:24 Temperature 98.2 F 01/10/25 11:24 Pulse Rate 72 01/10/25 17:11 Respiratory Rate 12 01/10/25 17:11 Blood Pressure 121/51 L 01/10/25 17:11 Pulse Oximetry 100 01/10/25 17:11 Oxygen Delivery Room Air 01/10/25 18:10 <Khushboo Elder PA-C - Last Filed: 01/10/25 19:15> Vital Signs Temperature 98.2 F 01/10/25 11:24 Pulse Rate 161 H 01/10/25 11:24 Respiratory Rate 13 01/10/25 11:24 Blood Pressure 117/94 H 01/10/25 11:24 Pulse Oximetry 100 01/10/25 11:24 Oxygen Delivery Room Air 01/10/25 11:24 Temperature 98.2 F 01/10/25 11:24 Pulse Rate 72 01/10/25 17:11 Respiratory Rate 12 01/10/25 17:11 Blood Pressure 121/51 L 01/10/25 17:11 Pulse Oximetry 100 01/10/25 17:11 Oxygen Delivery Room Air 01/10/25 18:10 <Leela Bhakta MD - Last Filed: 01/10/25 20:54> MDM - Arrhythmia/Palpitations MDM Narrative Medical decision making narrative: Patient presents to the emergency department for palpitations. Heart rate noted to be in the 150s upon arrival. Appears consistent with likely an atrial tachycardia. Cbc without leukocytosis. Metabolic panel without concerning findings. TSH is normal. D-dimer is not elevated. Baseline troponin is negative. Chest x-ray without acute cardiopulmonary abnormality. Patient given 2 doses of metoprolol IV. Will be admitted to the hospitalist service for further management. <Khushboo Elder PA-C - Last Filed: 01/10/25 19:15> Differential Diagnosis Differential diagnosis: Likely palpitations, anxiety, sinus tachycardia, artial fibrillation, artial flutter and supraventricular tachycardia <Khushboo Elder PA-C - Last Filed: 01/10/25 19:15> Lab Data Attestation: I reviewed the patient's lab results. <Khushboo Elder PA-C - Last Filed: 01/10/25 19:15> Result diagrams: 01/10/25 11:35 01/10/25 11:35 <Khushboo Elder PA-C - Last Filed: 01/10/25 19:15> Labs: Lab Results 01/10/25 Range/Units 11:35 WBC 7.7 (4.5-10.0) K/mm3 RBC 4.26 (4.2-5.4) M/mm3 Hgb 12.9 (12.0-15.0) g/dL Hct 38.7 (37.0-47.0) % MCV 90.8 (80-100) fl MCH 30.3 (26-34) pg MCHC 33.3 (32-36) g/dl RDW 12.6 (11.5-14.5) % Plt Count 288 (150-375) k/mm3 MPV 10.0 (7.4-10.4) fl Immature Gran % (Auto) 0.3 (0-0.5) % Neut % (Auto) 65.3 (45.5-73.1) % Lymph % (Auto) 24.9 (18.3-44.2) % [place] % (Auto) 7.0 (2.6-8.5) % Eos % (Auto) 1.7 (0-4.4) % Baso % (Auto) 0.8 (0.2-1.2) % Lymph # (Auto) 1.91 (0.9-3.2) K/mm3 [place] # (Auto) 0.5 (0.1-0.6) K/mm3 Eos # (Auto) 0.1 (0-0.3) K/mm3 Baso # (Auto) 0.1 (0.0-0.1) K/mm3 Abs Immat Gran (auto) 0.02 (0.00-0.031) K/mm3 Absolute Neuts (auto) 5.0 (1.3-6.7) K/mm3 Absolute Nucleated RBC 0.000 (0.0-0.012) K/mm3 Nucleated RBC % 0.0 (0.0-0.2) % PT 13.2 (11.1-14.7) Seconds INR 1.0 APTT 27.3 (22.3-36.8) Seconds D-Dimer 0.31 (<0.48) ug/mL Sodium 138 (137-145) mmol/L Potassium 3.9 (3.4-5.0) mmol/L Chloride 102 (98-107) mmol/L Carbon Dioxide 28 (22-30) mmol/L Anion Gap 8 (4-12) mmol/L BUN 30 H (7-17) mg/dL Creatinine 1.00 (0.7-1.0) mg/dL Estim Creat Clear Calc 49 ml/min Estimated GFR 55 L (59 - ) Glucose 105 (65-110) mg/dL Calcium 9.3 (8.4-10.2) mg/dL Total Bilirubin 0.4 (0.2-1.3) mg/dL AST 36 (14-36) U/L ALT 36 H (6-35) U/L Alkaline Phosphatase 92 (38-126) U/L Troponin I < 0.012 (0.000-0.034) ng/mL Total Protein 7.0 (6.3-8.2) g/dL Albumin 4.2 (3.5-5.1) g/dL Lipase 193 (23-300) U/L TSH (Reflex) 3.760 (0.465-4.68) uIU/mL <Khushboo Elder PA-C - Last Filed: 01/10/25 19:15> Lab Results 01/10/25 Range/Units 11:35 WBC 7.7 (4.5-10.0) K/mm3 RBC 4.26 (4.2-5.4) M/mm3 Hgb 12.9 (12.0-15.0) g/dL Hct 38.7 (37.0-47.0) % MCV 90.8 (80-100) fl MCH 30.3 (26-34) pg MCHC 33.3 (32-36) g/dl RDW 12.6 (11.5-14.5) % Plt Count 288 (150-375) k/mm3 MPV 10.0 (7.4-10.4) fl Immature Gran % (Auto) 0.3 (0-0.5) % Neut % (Auto) 65.3 (45.5-73.1) % Lymph % (Auto) 24.9 (18.3-44.2) % [place] % (Auto) 7.0 (2.6-8.5) % Eos % (Auto) 1.7 (0-4.4) % Baso % (Auto) 0.8 (0.2-1.2) % Lymph # (Auto) 1.91 (0.9-3.2) K/mm3 [place] # (Auto) 0.5 (0.1-0.6) K/mm3 Eos # (Auto) 0.1 (0-0.3) K/mm3 Baso # (Auto) 0.1 (0.0-0.1) K/mm3 Abs Immat Gran (auto) 0.02 (0.00-0.031) K/mm3 Absolute Neuts (auto) 5.0 (1.3-6.7) K/mm3 Absolute Nucleated RBC 0.000 (0.0-0.012) K/mm3 Nucleated RBC % 0.0 (0.0-0.2) % PT 13.2 (11.1-14.7) Seconds INR 1.0 APTT 27.3 (22.3-36.8) Seconds D-Dimer 0.31 (<0.48) ug/mL Sodium 138 (137-145) mmol/L Potassium 3.9 (3.4-5.0) mmol/L Chloride 102 (98-107) mmol/L Carbon Dioxide 28 (22-30) mmol/L Anion Gap 8 (4-12) mmol/L BUN 30 H (7-17) mg/dL Creatinine 1.00 (0.7-1.0) mg/dL Estim Creat Clear Calc 49 ml/min Estimated GFR 55 L (59 - ) Glucose 105 (65-110) mg/dL Calcium 9.3 (8.4-10.2) mg/dL Total Bilirubin 0.4 (0.2-1.3) mg/dL AST 36 (14-36) U/L ALT 36 H (6-35) U/L Alkaline Phosphatase 92 (38-126) U/L Troponin I < 0.012 (0.000-0.034) ng/mL Total Protein 7.0 (6.3-8.2) g/dL Albumin 4.2 (3.5-5.1) g/dL Lipase 193 (23-300) U/L TSH (Reflex) 3.760 (0.465-4.68) uIU/mL <Leela Bhakta MD - Last Filed: 01/10/25 20:54> Imaging Data Radiologist's impression: ITS Impressions Chest X-Ray 01/10/25 11:58 IMPRESSION: 1. No acute cardiopulmonary findings. <Khushboo Elder PA-C - Last Filed: 01/10/25 19:15> ECG Data EKG #1: ECG completion date: 01/10/25 <Khushboo Elder PA-C - Last Filed: 01/10/25 19:15> EKG Interpretation: tachycardia, atrial flutter, non-specific ST changes and normal QT <Khushboo Elder PA-C - Last Filed: 01/10/25 19:15> Critical Care Time Critical Care Time Critical Care Time: Yes <Khushboo Elder PA-C - Last Filed: 01/10/25 19:15> Total Critical Care Time: 35 <Khushboo Elder PA-C - Last Filed: 01/10/25 19:15> Discharge Plan Discharge Clinical Impression: Atrial tachycardia <Khushboo Elder PA-C - Last Filed: 01/10/25 19:15> Patient Disposition: Still a Patient <Khushboo Elder PA-C - Last Filed: 01/10/25 19:15> Condition: Improved <Khushboo Elder PA-C - Last Filed: 01/10/25 19:15>
[2025-01-10 11:51] LABS: INR 1.0; Prothrombin Time 13.2 Seconds (11.1-14.7)
[2025-01-10 11:52] LABS: Partial Thromboplastin Time 27.3 Seconds (22.3-36.8)
[2025-01-10 11:53] LABS: Alanine Aminotransferase 36 U/L (6-35); Albumin Level 4.2 g/dL (3.5-5.1); Alkaline Phosphatase 92 U/L (38-126); Anion Gap 8 mmol/L (4-12); Aspartate Amino Transferase 36 U/L (14-36); Bilirubin,Total 0.4 mg/dL (0.2-1.3); Blood Urea Nitrogen 30 mg/dL (7-17); Calcium 9.3 mg/dL (8.4-10.2); Carbon Dioxide 28 mmol/L (22-30); Chloride 102 mmol/L (98-107); Estimated CRCL calculation 49 ml/min; Estimated Glomerular Filt Rate 55; Glucose 105 mg/dL (65-110); Lipase 193 U/L (23-300); Potassium 3.9 mmol/L (3.4-5.0); Sodium 138 mmol/L (137-145); Total Protein 7.0 g/dL (6.3-8.2)
[2025-01-10 12:04] LABS: Troponin I < 0.012 ng/mL (0.000-0.034)
[2025-01-10 13:18] LABS: Thyroid Stimulating Hormone Reflex 3.760 uIU/mL (0.465-4.68)
--- NOTE | 2025-01-10 14:30 | ECG_ITS ---
Test Date: 2025-01-10 14:41:12 Measurements Intervals [place] Rate: 121 P: 0 MS: 0 QRS: 63 QRSD: 84 T: 71 QT: 297 QTc: 423 Interpretive Statements ECTOPIC ATRIAL TACHYCARDIA INDETERMINATE AXIS POSSIBLE RIGHT VENTRICULAR CONDUCTION DELAY [RSR (QR) IN V1/V2] ABNORMAL RHYTHM ECG Compared to ECG 01/10/2025 11:19:15 ST (T wave) deviation no longer present Electronically Signed On 01-10-2025 15:01:20 [employer]PER[employer] by Kevin Pizano M.D.
--- NOTE | 2025-01-10 14:55 | ECG_ITS ---
Test Date: 2025-01-10 14:58:33 Measurements Intervals [place] Rate: 76 P: 73 UT: 172 QRS: 73 QRSD: 84 T: 61 QT: 362 QTc: 407 Interpretive Statements SINUS RHYTHM POSSIBLE LEFT ATRIAL ENLARGEMENT [-0.1mV P-WAVE IN V1/V2] POSSIBLE RIGHT VENTRICULAR CONDUCTION DELAY [RSR (QR) IN V1/V2] Compared to ECG 01/10/2025 14:41:12 Indeterminate axis no longer present Electronically Signed On 01-10-2025 15:02:05 [employer]OTOGRAPHER [employer]TRAIT by Kevin Pizano M.D.
--- NOTE | 2025-01-10 16:37 | PM.CNCAR ---
Assessment and Plan Assessment and plan (1) Paroxysmal atrial fibrillation with rapid ventricular response: Code(s): I48.0 - Paroxysmal atrial fibrillation Status: Acute (2) History of IBS: Code(s): Z87.19 - Personal history of other diseases of the digestive system Status: Acute (3) Hypothyroid: Qualifiers: Hypothyroidism type: acquired Qualified Code(s): E03.9 - Hypothyroidism, unspecified Code(s): E03.9 - Hypothyroidism, unspecified Status: Acute Plan Impression: 1. Patient with complaints of palpitation was found to have narrow QRS regular tachycardia at a rate of 150 per minute. EKG review suggests atrial flutter with 2-1 block. Patient received up to 2 doses of 5 mg metoprolol with decrease in heart rate to 120. Currently blood pressure 113/53 and heart rate is 76 per minute. 2. History of hypothyroidism. Patient is on Synthroid 100 mcg daily. Admitting TSH is normal at 3.51. Recommendations: -start patient on full-dose subcu Lovenox. -echocardiogram to evaluate left ventricular systolic function. -start patient on Cardizem 30 mg q.i.d.. -continue to monitor patient overnight. Possible discharge home on oral medication and oral anticoagulation. History of Present Illness History of Present Illness Consult date/time: 01/10/25 16:37 Requesting physician: Khushboo Elder PA-C Consult reason: Other Reason For Visit: Atrial Flutter Narrative: Patient is a 69-year-old female came to the emergency room today with complaints of palpitations. Patient noted to have a heart rate of 150 per minute with narrow QRS and I will 12 lead EKG suggested atrial flutter with 2-1 block for Patient was given of 2 to 2 5 mg intravenous doses with decrease in heart rate to 120 per minute. No complaints of chest pain or shortness of breath Past medical history is significant for history hypothyroidism and osteoporosis No associated fever or chills. No complaints of chest pain, cough or shortness of breath No complaints of abdominal pain, nausea vomiting or diarrhea Admitting blood pressure was 117/94 and heart rate was 160 per minute. Patient was afebrile and O2 saturation was 100%. Admitting laboratory data revealed the WBC count 7.7, hemoglobin is 12.9, platelets are normal. Sodium is 138, potassium 3.9, BUN is 30, creatinine is 1.0. Admitting chest x-ray was negative for acute cardiopulmonary abnormalities . Review of Systems Review of Systems: 12 point review of system was completed. Pertinent positive and negative findings per HPI. Constitutional negative for weight loss, fever or chills or weakness. Head and neck system negative. Cardiovascular positive for heart palpitation negative for dizziness, chest pain or shortness of breath Pulmonary negative for shortness of breath, wheezing or hemoptysis. Gastrointestinal negative for abdominal pain, nausea vomiting or diarrhea. Neurovascular is negative for dizziness, seizures, recurrent fall or focal neurological symptoms Skin and musculoskeletal are negative. [facility] Past Medical History Medical History (Updated 01/10/25 @ 16:53 by Paddy Mims MD) Osteoporosis failed ibandronate/ failed prolia 2020/ reclast Hypothyroid Surgical History Surgical History H/O colonoscopy (~03/2018) Family History Family History Father Hypertension Mother Family history of emphysema Son Hypertension Social History Social History Alcohol intake: current Alcohol use details: socially Substance use: never Substance use type: does not use Do You Feel Safe in your Home?: Yes Lack of Transportation: No Lack of Food: Never True Current Housing: I Have Housing Concerned About Future Housing: No Difficulty Paying Gas/Electric Bills: No Difficulty Paying for Meds: No Currently Unemployed: No Education: Master's Degree or Higher Difficulty w/ Childcare or Family Care: No Living arrangements: with family Spiritual care concerns: No Meds Home Medications and Allergies Home Medications ?Medication ?Instructions ?Recorded ?Confirmed ?Type calcium 600 mg capsule 600 mg PO DAILY 04/08/22 01/10/25 History cholecalciferol (vitamin D3) 25 25 mcg PO DAILY 04/08/22 01/10/25 History mcg (1,000 unit) tablet magnesium 500 mg tablet 500 mg PO DAILY 04/08/22 01/10/25 History mecobalamin (vitamin B12) 1,000 1,000 mcg PO DAILY 04/08/22 01/10/25 History mcg chewable tablet multivitamin with minerals-folic 1 tablet PO DAILY 04/08/22 01/10/25 History acid 0.4 mg tablet vitamins A,C,A-ioxw-lzjfej 4,296 1 cap PO BID 05/25/22 01/10/25 History mcg-226 mg-90 mg capsule (PreserVision AREDS) hyoscyamine sulfate 0.125 mg 0.125 mg PO QID PRN abd pain #90 02/17/24 01/10/25 Rx sublingual tablet tabs eluxadoline 100 mg tablet (Viberzi) 100 mg PO BID #180 tabs 12/05/24 01/10/25 Rx levothyroxine 100 mcg tablet See Rx Instructions .Route 12/13/24 01/10/25 Rx .COMPLEX #90 tabs Allergies Allergy/AdvReac Type Severity Reaction Status Date / Time No Known Allergies Allergy Verified 01/10/25 11:27 Vital Signs Vital Signs - 24 hr 01/10/25 11:24 01/10/25 11:26 01/10/25 11:27 Temperature 36.8 C Pulse Rate 161 H 159 H 156 H Respiratory Rate 13 20 Blood Pressure 117/94 H 117/94 H Pulse Oximetry 100 99 Oxygen Delivery Room Air 01/10/25 11:31 01/10/25 11:34 01/10/25 11:37 Temperature Pulse Rate 154 H 137 H 121 H Respiratory Rate 13 15 Blood Pressure 116/83 116/83 Pulse Oximetry 100 Oxygen Delivery 01/10/25 12:10 01/10/25 12:11 01/10/25 12:13 Temperature Pulse Rate 125 H 124 H 126 H Respiratory Rate 15 15 17 Blood Pressure 95/66 L 95/66 L Pulse Oximetry 100 100 100 Oxygen Delivery 01/10/25 12:15 01/10/25 12:16 01/10/25 12:30 Temperature Pulse Rate 125 H 127 H 132 H Respiratory Rate 17 14 15 Blood Pressure 109/77 119/87 Pulse Oximetry 100 99 100 Oxygen Delivery 01/10/25 12:31 01/10/25 13:01 01/10/25 13:21 Temperature Pulse Rate 133 H 137 H 133 H Respiratory Rate 16 14 16 Blood Pressure 106/68 Pulse Oximetry 100 100 100 Oxygen Delivery 01/10/25 13:34 01/10/25 13:46 01/10/25 14:10 Temperature Pulse Rate 143 H 135 H 147 H Respiratory Rate 16 13 14 Blood Pressure 116/74 110/97 H Pulse Oximetry 100 100 100 Oxygen Delivery 01/10/25 14:24 01/10/25 14:31 01/10/25 15:01 Temperature Pulse Rate 134 H 124 H 76 Respiratory Rate 12 13 Blood Pressure 107/54 L 113/53 L Pulse Oximetry 100 100 Oxygen Delivery Exam Narrative: Patient was examined at the bedside. Patient is awake alert and appears comfortable without distress or shortness of breath. Head and neck examination is unremarkable. Sclerae is nonicteric. ENT examination is negative. Neck is supple there is no JVD or carotid bruit. Lungs are clear auscultation percussion. Heart sounds reveal normal S1-S2. There is no S3-S4. Abdomen is soft and nontender. There is no hepatosplenomegaly probable sounds present. Extremities revealed no pedal edema. Neurological examination is intact. Results Labs and Meds 01/10/25 11:35 01/10/25 11:35 Lab results: Cardiac Enzymes 01/10/25 Range/Units 11:35 AST 36 (14-36) U/L Troponin I < 0.012 (0.000-0.034) ng/mL Coagulation 01/10/25 Range/Units 11:35 PT 13.2 (11.1-14.7) Seconds APTT 27.3 (22.3-36.8) Seconds CBC 01/10/25 Range/Units 11:35 WBC 7.7 (4.5-10.0) K/mm3 RBC 4.26 (4.2-5.4) M/mm3 Hgb 12.9 (12.0-15.0) g/dL Hct 38.7 (37.0-47.0) % Plt Count 288 (150-375) k/mm3 Lymph # (Auto) 1.91 (0.9-3.2) K/mm3 [place] # (Auto) 0.5 (0.1-0.6) K/mm3 Eos # (Auto) 0.1 (0-0.3) K/mm3 Baso # (Auto) 0.1 (0.0-0.1) K/mm3 Comprehensive Metabolic Panel 01/10/25 Range/Units 11:35 Sodium 138 (137-145) mmol/L Potassium 3.9 (3.4-5.0) mmol/L Chloride 102 (98-107) mmol/L Carbon Dioxide 28 (22-30) mmol/L BUN 30 H (7-17) mg/dL Creatinine 1.00 (0.7-1.0) mg/dL Glucose 105 (65-110) mg/dL Calcium 9.3 (8.4-10.2) mg/dL AST 36 (14-36) U/L ALT 36 H (6-35) U/L Alkaline Phosphatase 92 (38-126) U/L Total Protein 7.0 (6.3-8.2) g/dL Albumin 4.2 (3.5-5.1) g/dL Intake and Output 01/10/25 01/10/25 01/10/25 07:59 15:59 23:59 Intake Total 1999 Balance 1999 Intake: IV 2000 Sodium Chloride 0.9% IV 1,000 2000 ml @ 999 mls/hr IV CONT .Q1H1M STA Rx#:[id number] Patient Weight 01/10/25 23:59 Weight 65.4 kg
--- NOTE | 2025-01-10 16:51 | PM.IMHP ---
H&P: HPI History of Present Illness Date/Time: 01/10/25 16:51 Chief Complaint: Palpitations Narrative: 69-year-old female past medical history of hypothyroidism, IBS, osteoporosis presents to the ED on 01/10/2025 from her PCPs office with complaints of palpitations. Patient was at her PCP's office for regular follow-up concerning her IBS. She was found to have a heart rate in the 160s. ECG was performed which read supraventricular tachycardia. Unsuccessfully attempted to improve heart rate in doctor's office with Valsalva maneuver. Patient was directed to present to the ED. patient denies chest pain, lightheadedness, dizziness. She does state that she felt short of breath at her doctor's office after walking up the steps to the office like she always does. The patient can feel the rapid heart rate. Patient had a Holter monitor in 2023 due to feeling palpitations. It showed supraventricular beats but no SVT or AFib. Initial vital signs 117/94, HR 161, respirations 13, afebrile and 100% on room air. Labs unremarkable. Chest x-ray with no acute cardiopulmonary findings. Initial EKG in the ED read supraventricular tachycardia versus atrial tachycardia with a rate of [address] depression. Review of Systems Review of Systems: All systems reviewed & are unremarkable except as noted in HPI and below PMFSH Past Medical History Medical History (Updated 01/10/25 @ 23:23 by Lauren Dhillon APRN) Osteoporosis failed ibandronate/ failed prolia 2020/ reclast Hypothyroid Surgical History Surgical History H/O colonoscopy (~03/2018) Family History Family History Father Hypertension Mother Family history of emphysema Son Hypertension Social History Social History Alcohol intake: current Alcohol use details: socially Substance use: never Substance use type: does not use Do You Feel Safe in your Home?: Yes Lack of Transportation: No Lack of Food: Never True Current Housing: I Have Housing Concerned About Future Housing: No Difficulty Paying Gas/Electric Bills: No Difficulty Paying for Meds: No Currently Unemployed: No Education: Master's Degree or Higher Difficulty w/ Childcare or Family Care: No Living arrangements: with family Spiritual care concerns: No Meds Home Medications and Allergies Home Medications ?Medication ?Instructions ?Recorded ?Confirmed ?Type calcium 600 mg capsule 600 mg PO HS 04/08/22 01/10/25 History cholecalciferol (vitamin D3) 25 25 mcg PO HS 04/08/22 01/10/25 History mcg (1,000 unit) tablet magnesium 500 mg tablet 500 mg PO HS 04/08/22 01/10/25 History mecobalamin (vitamin B12) 1,000 1,000 mcg PO HS 04/08/22 01/10/25 History mcg chewable tablet multivitamin with minerals-folic 1 tablet PO HS 04/08/22 01/10/25 History acid 0.4 mg tablet vitamins A,C,L-mvxw-gzihkl 4,296 1 cap PO .q12hr 05/25/22 01/10/25 History mcg-226 mg-90 mg capsule (PreserVision AREDS) hyoscyamine sulfate 0.125 mg 0.125 mg PO QID PRN abd pain #90 02/17/24 01/10/25 Rx sublingual tablet tabs levothyroxine 100 mcg tablet See Rx Instructions .Route 12/13/24 01/10/25 Rx .COMPLEX #90 tabs eluxadoline 100 mg tablet (Viberzi) 100 mg PO .pc BID 01/10/25 01/10/25 History Allergies Allergy/AdvReac Type Severity Reaction Status Date / Time lactose AdvReac Mild Diarrhea Verified 01/10/25 18:00 Vital Signs Vital Signs - 24 hr 01/10/25 11:24 01/10/25 11:26 01/10/25 11:27 Temperature 98.2 F Pulse Rate 161 H 159 H 156 H Respiratory Rate 13 20 Blood Pressure 117/94 H 117/94 H Pulse Oximetry 100 99 Oxygen Delivery Room Air 01/10/25 11:31 01/10/25 11:34 01/10/25 11:37 Temperature Pulse Rate 154 H 137 H 121 H Respiratory Rate 13 15 Blood Pressure 116/83 116/83 Pulse Oximetry 100 Oxygen Delivery 01/10/25 12:10 01/10/25 12:11 01/10/25 12:13 Temperature Pulse Rate 125 H 124 H 126 H Respiratory Rate 15 15 17 Blood Pressure 95/66 L 95/66 L Pulse Oximetry 100 100 100 Oxygen Delivery 01/10/25 12:15 01/10/25 12:16 01/10/25 12:30 Temperature Pulse Rate 125 H 127 H 132 H Respiratory Rate 17 14 15 Blood Pressure 109/77 119/87 Pulse Oximetry 100 99 100 Oxygen Delivery 01/10/25 12:31 01/10/25 13:01 01/10/25 13:21 Temperature Pulse Rate 133 H 137 H 133 H Respiratory Rate 16 14 16 Blood Pressure 106/68 Pulse Oximetry 100 100 100 Oxygen Delivery 01/10/25 13:34 01/10/25 13:46 01/10/25 14:10 Temperature Pulse Rate 143 H 135 H 147 H Respiratory Rate 16 13 14 Blood Pressure 116/74 110/97 H Pulse Oximetry 100 100 100 Oxygen Delivery 01/10/25 14:24 01/10/25 14:31 01/10/25 15:01 Temperature Pulse Rate 134 H 124 H 76 Respiratory Rate 12 13 Blood Pressure 107/54 L 113/53 L Pulse Oximetry 100 100 Oxygen Delivery Exam Narrative: GENERAL: non-toxic appearing, in no acute distress. HEAD: Normocephalic, atraumatic. EYES: PERRLA. Conjunctivae clear. NOSE: Normal no drainage. THROAT: Pharynx clear, no exudate. NECK: Trachea midline. No adenopathy, no masses. RESPIRATORY: Airway patent, respirations nonlabored. CTA. CARDIOVASCULAR: Regular rate and rhythm BREASTS: Defer GASTROINTESTINAL: Abdomen is soft and nontender. No organomegaly. Bowel sounds normal in all quadrants. GENITOURINARY: Defer MUSCULOSKELETAL: Moves all extremities. No gross deformities. SKIN: Warm, dry, normal color. NEURO: A&O X4. Speech clear PSYCHIATRIC: Normal interaction H&P: Results Labs Labs: Short CBC 01/10/25 Range/Units 11:35 WBC 7.7 (4.5-10.0) K/mm3 Hgb 12.9 (12.0-15.0) g/dL Hct 38.7 (37.0-47.0) % Plt Count 288 (150-375) k/mm3 BMP 01/10/25 11:35 Sodium 138 Potassium 3.9 Chloride 102 Carbon Dioxide 28 BUN 30 H Creatinine 1.00 Glucose 105 Calcium 9.3 Cardiac Enzymes 01/10/25 Range/Units 11:35 Troponin I < 0.012 (0.000-0.034) ng/mL Liver Function 01/10/25 Range/Units 11:35 Total Bilirubin 0.4 (0.2-1.3) mg/dL AST 36 (14-36) U/L ALT 36 H (6-35) U/L Alkaline Phosphatase 92 (38-126) U/L Albumin 4.2 (3.5-5.1) g/dL Assessment and Plan Assessment and plan (1) Paroxysmal atrial fibrillation with rapid ventricular response: Code(s): I48.0 - Paroxysmal atrial fibrillation Status: Acute Assessment and Plan: Patient was incidentally found to have a heart rate in the 160s at her PCPs office. ECG was performed which read supraventricular tachycardia. Unsuccessfully attempted to improve heart rate in doctor's office with Valsalva maneuver. The patient presented to the ED with initial heart rate of 161 and a BP 117/94. No chest pain. Initial EKG in the ED read supraventricular tachycardia versus atrial tachycardia with a rate of [address] depression. 5 mg IV push metoprolol given in ED after initial EKG with improvement of heart rate into the 120s. Subsequent 5 mg metoprolol given which converted patient to normal sinus rhythm in the 70s. -cardiology consult -65 mg Lovenox q.12 -echo ordered -Cardizem 30 mg q.6 hours (2) Irritable bowel syndrome with diarrhea: Code(s): K58.0 - Irritable bowel syndrome with diarrhea Status: Chronic Assessment and Plan: History of IBS and lactose intolerant -continue hyoscyamine 0.125 p.o. q.i.d. p.r.n. -continue home supply viberzi (3) Hypothyroid: Qualifiers: Hypothyroidism type: acquired Qualified Code(s): E03.9 - Hypothyroidism, unspecified Code(s): E03.9 - Hypothyroidism, unspecified Status: Chronic Assessment and Plan: TSH 3.76 on admit -continue Synthroid 100 mcg daily Plan Diet: Lactose-free diet GI prophylaxis: NA DVT prophylaxis: Lovenox 65 mg q.12 lines/drains: PIV Fluids: 2 L NS bolus Code status: Full Quality VTE Prophylaxis VTE prophylaxis: pharmacologic ordered Hospitalist [facility] Advance Care Plan I have confirmed that the patient's Advanced Care Plan is present, code status is documented, or surrogate decision maker is listed in patient medical record.: Yes Medication Reconciliation I have utilized all available resources to obtain, update and review the patients current medications (includes all prescriptions, OTC, herbals, cannabis, and nutritional supplements).: Yes
[2025-01-10] MEDS: ENOXAPARIN 80 MG/0.8 ML SYRINGE 65 MG SUB-Q (17:44)
--- NOTE | 2025-01-10 17:59 | ADMGEN ---
This patient, Hamida Dalton, was admitted to Medical Room 349-01. Patient/family oriented to hospital policies and general routines including ID bracelet, bed and alarms, visiting hours, pain management, procedures, bathroom and other care routines, personal items, smoking policy, room service/diet, and visiting hours. Information on how to activate the Rapid Response Team has been discussed. Patient/Family are encouraged to report perceived risks to care and to ask questions if they do not understand what they are told or what they should do.
[2025-01-10] MEDS: MAGNESIUM OXIDE 400 MG TABLET PO (20:39)
[2025-01-10] MEDS: CHOLECALCIFEROL (VITAMIN D3) 25 MCG (1,000 UNITS) TABLET PO (20:39)
[2025-01-10] MEDS: THERAPEUTIC MULTIVITAMINS/MINERALS TAB (*BKC) 1 TABLET PO (20:39)
[2025-01-10] MEDS: OPTI-GEN TAB 1 TABLET PO (20:39)
[2025-01-10] MEDS: CYANOCOBALAMIN 1,000 MCG TABLET 1000 MCG PO (20:39)
[2025-01-10] MEDS: CALCIUM CARBONATE (OSCAL) 500 MG TABLET PO (20:39)
[2025-01-11] VITALS (9 sets, daily range): BP systolic 120–124; BP diastolic 51–64; PULSE 65–85; RESP 16–18; TEMP 36.4–37; O2SAT 97–100
--- NOTE | 2025-01-11 | ECHO_ITS ---
Patient Info Name: Hamida Dalton Age: 69 years : 1955 Gender: Female Ht: 72 in Wt: 144 lbs BSA: 1.81 m2 HR: 80 bpm BP: 124 / 51 mmHg Heart Rhythm: Sinus Rhythm Technical Quality: Good Exam Date: 01/11/2025 10:09 AM Patient Status: I Admit Date: 01/10/2025 Exam Type: CA echo doppler color flow Complete two-dimensional, color flow and Doppler transthoracic echocardiogram is performed. Staff Referring Physician: Khushboo Elder [facility] Film Cutter: Rosemary Quigley Attending Provider: Latonya Hays MD Summary 1. Complete two-dimensional, color flow and Doppler transthoracic echocardiogram is performed. 2. Left ventricular chamber dimension is normal. 3. Left ventricular systolic function is normal, estimated at 60-65. 4. There is no increased left ventricular wall thickness. 5. The left ventricular diastolic function is grade I diastolic dysfunction. 6. There is mild mitral valve regurgitation. 7. The mitral valve has thickened leaflets. 8. There is mild tricuspid valve regurgitation. Left Ventricle Left ventricular chamber dimension is normal. Left ventricular systolic function is normal, estimated at 60-65. There is no increased left ventricular wall thickness. The left ventricular diastolic function is grade I diastolic dysfunction. Right Ventricle Right ventricular chamber dimension is normal. Right ventricular systolic function is normal. Left Atria Left atrial chamber dimension is normal. Right Atria Right atrial chamber dimension is normal. Atrial Septum Intact interatrial septum visualized by color flow imaging. Aortic Valve The aortic valve is trileaflet. There is mild aortic valve sclerosis. There is no aortic valve stenosis. There is trace aortic valve regurgitation. Pulmonic Valve The pulmonic valve is normal. There is no pulmonic valve stenosis. There is trace pulmonic regurgitation. Mitral Valve The mitral valve has thickened leaflets. There is no mitral valve stenosis. There is mild mitral valve regurgitation. Tricuspid Valve The tricuspid valve leaflets are normal. There is no significant tricuspid valve stenosis. There is mild tricuspid valve regurgitation. No pulmonary hypertension, estimated pulmonary arterial systolic pressure is 30 mmHg. Pericardium/Pleural The pericardium appears normal. There is trivial pericardial effusion. Inferior Vena Cava Normal inferior vena cava with <50% collapse upon inspiration consistent with elevated right atrial pressure, 10 mmHg. Aorta The aortic root size at the sinus of Valsalva is normal. Left Ventricular Outflow Tract Name Value Normal LVOT 2D LVOT Diameter 1.9 cm LVOT Doppler LVOT Peak Velocity 104 cm/s LVOT Peak Gradient 4 mmHg LVOT Mean Gradient 3 mmHg LVOT VTI 24 cm LVOT VTI/AV VTI Ratio 0.8 LVOT Stroke Volume 66 ml LVOT CO 4.6 l/min LVOT CI 2.6 l/min/m2 Pulmonic Valve Name Value Normal RVOT Doppler RVOT Peak Velocity 69 cm/s RVOT Peak Gradient 2 mmHg PV Doppler PV Peak Velocity 78 cm/s PV Peak Gradient 2 mmHg Mitral Valve Name Value Normal MV Diastolic Function MV E Peak Velocity 99 cm/s MV A Peak Velocity 107 cm/s MV E/A 0.9 MV Decel Time (PW) 169 ms Tricuspid Valve Name Value Normal TV Regurgitation Doppler TR Peak Velocity 222 cm/s TR Peak Gradient 18 mmHg Estimated PAP/RSVP RA Pressure 10 mmHg <=5 PA Systolic Pressure 30 mmHg <36 RV Systolic Pressure 30 mmHg <36 Aorta Name Value Normal Ascending Aorta Ao Root Diameter (MM) 3.0 cm Ao Root Diam Index (MM) 1.6 cm/m2 Aortic Valve Name Value Normal AV Doppler AV Peak Velocity 125 cm/s AV Peak Gradient 6 mmHg AV Mean Gradient 4 mmHg AV VTI 28 cm AV Area (Cont Eq VTI) 2.3 cm2 >=3.0 AV Area (Cont Eq Ramon) 2.3 cm2 AV DI (Ramon) 0.83 AV Regurgitation 2D LVOT Area 2.7 cm2 Ventricles Name Value Normal LV Dimensions 2D/MM IVS Diastolic Thickness (2D) 0.8 cm 0.6-1.0 IVS Diastole Thickness (MM) 0.6 cm 0.6-0.9 LVID Diastole (2D) 4.0 cm 3.8-5.2 LVID Diastole (MM) 4.6 cm 3.8-5.2 LVIW Diastolic Thickness (2D) 0.9 cm 0.6-0.9 LVIW Diastolic Thickness (MM) 0.7 cm 0.6-0.9 LVID Systole (2D) 2.7 cm 2.2-3.5 LVID Systole (MM) 3.2 cm 2.2-3.5 LVOT Diameter 1.9 cm LV Mass (2D Cubed) 106.90 g 67.00-162.00 LV Mass Index (2D Cubed) 59 g/m2 43-95 Relative Wall Thickness (2D) 0.47 <=0.42 LV Mass (MM Cubed) 89.54 g 67.00-162.00 LV Mass Index (MM Cubed) 49 g/m2 43-95 Relative Wall Thickness (MM) 0.29 LV Fractional Shortening/Ejection Fraction 2D/MM LV Fractional Shortening (2D) 32 % 27-45 LV Fractional Shortening (MM) 31 % 27-45 LV EF (MM Teichholz) 58 % LV EF (2D Teichholz) 61 % LV Diastolic Volume (4C MOD) 91 ml LV EF (4C MOD) 57 % LV Diastolic Volume (2C MOD) 84 ml LV EF (2C MOD) 71 % LV Diastolic Volume (BP MOD) 87 ml 46-106 LV Diastolic Volume Index (BP MOD) 48 ml/m2 29-61 LV Systolic Volume (BP MOD) 32 ml 14-42 LV Systolic Volume Index (BP MOD) 18 ml/m2 8-24 LV EF (BP MOD) 63 % 54-74 LV Diastolic Length (4C) 8.2 cm LV Systolic Length (4C) 6.8 cm LV Stroke Volume (4C MOD) 52 ml Atria Name Value Normal LA Dimensions LA Dimension (MM) 3.4 cm 2.7-3.8 LA Volume (4C A-L) 44 ml LA Volume (BP A-L) 41 ml RA Dimensions RA Systolic Major Fitzpatrick Length (4C) 4.8 cm 2.2-2.8 RA Area (4C) 13.2 cm2 <=18.0 Report Signatures
[2025-01-11] MEDS: ENOXAPARIN 80 MG/0.8 ML SYRINGE 65 MG SUB-Q (05:29)
[2025-01-11] MEDS: LEVOTHYROXINE SODIUM 100 MCG TABLET PO (05:30)
[2025-01-11 05:55] LABS: Hematocrit 31.7 % (37.0-47.0); Hemoglobin 10.6 g/dL (12.0-15.0); Immature Granulocyte Percent A 0.2 % (0-0.5); Lymphocytes Absolute Auto 1.96 K/mm3 (0.9-3.2); Mean Corpuscular HGB Conc 33.4 g/dl (32-36); Mean Corpuscular Hemoglobin 30.3 pg (26-34); Mean Corpuscular Volume 90.6 fl (80-100); Nucleated Red Blood Cells Absolute Auto 0.000 K/mm3 (0.0-0.012); Nucleated Red Blood Cells Perc 0.0 % (0.0-0.2); Platelet Count Result 215 k/mm3 (150-375); Red Blood Count 3.50 M/mm3 (4.2-5.4); White Blood Count 6.1 K/mm3 (4.5-10.0)
--- NOTE | 2025-01-11 06:00 | ECG_ITS ---
Test Date: 2025-01-11 09:15:38 Measurements Intervals [place] Rate: 73 P: 72 OH: 171 QRS: 66 QRSD: 88 T: 58 QT: 382 QTc: 422 Interpretive Statements SINUS RHYTHM Compared to ECG 01/10/2025 14:58:33 No significant changes Electronically Signed On 01-11-2025 10:06:34 MILK HAULER by Santiago Du D.O
[2025-01-11 06:28] LABS: Anion Gap 5 mmol/L (4-12); Blood Urea Nitrogen 22 mg/dL (7-17); Calcium 8.7 mg/dL (8.4-10.2); Carbon Dioxide 26 mmol/L (22-30); Chloride 107 mmol/L (98-107); Estimated CRCL calculation 57 ml/min; Estimated Glomerular Filt Rate > 60; Glucose 75 mg/dL (65-110); Potassium 3.8 mmol/L (3.4-5.0); Sodium 138 mmol/L (137-145)
[2025-01-11] MEDS: OPTI-GEN TAB 1 TABLET PO ×2 (09:43→20:53)
[2025-01-11] MEDS: dilTIAZem HCL CD 120 MG CAP.24HR PO (12:03)
--- NOTE | 2025-01-11 13:38 | PM.PNCARD ---
Progress Note: A&P Assessment and Plan (1) Paroxysmal atrial fibrillation with rapid ventricular response: Code(s): I48.0 - Paroxysmal atrial fibrillation Status: Acute (2) History of IBS: Code(s): Z87.19 - Personal history of other diseases of the digestive system Status: Acute (3) Hypothyroid: Qualifiers: Hypothyroidism type: acquired Qualified Code(s): E03.9 - Hypothyroidism, unspecified Code(s): E03.9 - Hypothyroidism, unspecified Status: Chronic Plan Impression: 1. Patient with complaints of palpitation was found to have narrow QRS regular tachycardia at a rate of 150 per minute. EKG review suggests atrial flutter with 2-1 block. Patient received up to 2 doses of 5 mg metoprolol with decrease in heart rate to 120. 2. History of hypothyroidism. Patient is on Synthroid 100 mcg daily. Admitting TSH is normal at 3.51. Recommendations: -she has converted to NSR on cardizem 30 mg QID, will change to Cardizem CD 120 mg daily for dc -echocardiogram to evaluate left ventricular systolic function is pending -Her CHADSVASC2 is 2, given this will begin Eliquis 5 mg BID at discharge -will plan OP 30 day event monitor to determine afib burden and need for longer term AC -dc home later today pending echo report Subjective Date/time seen: 01/11/25 13:38 Interval history: Date of Service 01/11/25: Patient is sitting up in bed family at bedside. She overall feels well. No dizziness, palpitations, chest pain or shortness of breath at this time. Review of Systems Review of Systems: All systems reviewed & are unremarkable except as noted in HPI and below Exam Const: General: comfortable and no acute distress Eyes: Sclera: sclerae normal Neck: Neck: supple and No no JVD Thyroid: thyroid normal Resp: Effort & Inspection: normal respiratory effort Cardio: Rate: regular rate Rhythm: regular rhythm Heart sounds: no gallops, no murmurs and no rubs Skin: General skin exam: normal color Neuro: Speech: normal speech Extrem: General: normal to inspection and no edema Psych: Mental Status: mental status grossly normal Objective Data Vital Signs Vital Signs: Vital Signs - 24 hr 01/10/25 13:46 01/10/25 14:10 01/10/25 14:24 Temperature Pulse Rate 135 H 147 H 134 H Respiratory Rate 13 14 Blood Pressure 116/74 110/97 H Pulse Oximetry 100 100 Oxygen Delivery 01/10/25 14:31 01/10/25 15:01 01/10/25 17:11 Temperature Pulse Rate 124 H 76 72 Respiratory Rate 12 13 12 Blood Pressure 107/54 L 113/53 L 121/51 L Pulse Oximetry 100 100 100 Oxygen Delivery 01/10/25 18:10 01/10/25 20:00 01/10/25 20:00 Temperature Pulse Rate 74 Respiratory Rate Blood Pressure Pulse Oximetry Oxygen Delivery Room Air Room Air 01/10/25 21:45 01/11/25 00:00 01/11/25 04:00 Temperature 36.6 C Pulse Rate 77 66 70 Respiratory Rate 18 Blood Pressure 127/53 L Pulse Oximetry 95 Oxygen Delivery 01/11/25 06:00 01/11/25 08:00 01/11/25 08:00 Temperature 36.4 C 36.9 C Pulse Rate 74 65 74 Respiratory Rate 18 16 Blood Pressure 124/51 L 120/52 L Pulse Oximetry 97 98 Oxygen Delivery 01/11/25 09:45 01/11/25 12:00 01/11/25 12:00 Temperature 37.0 C Pulse Rate 76 72 Respiratory Rate 18 Blood Pressure 123/64 Pulse Oximetry 98 Oxygen Delivery Room Air Intake/Output Intake/Output: Intake & Output 01/08/25 01/09/25 01/10/25 01/11/25 23:59 23:59 23:59 23:59 Intake Total 1999 Balance 1999 630 Meds/Results Medications: Active Medications Generic Name Dose Route Start Last Admin Trade Name Leroyq PRN Reason Stop Dose Admin Apixaban 5 mg 01/11/25 21:00 Apixaban 5 Mg Tablet PO Q12HR MAXIMILIANO Calcium Carbonate 500 mg 01/10/25 21:00 01/10/25 20:39 Calcium Carbonate (Oscal) 500 Mg Tablet PO 500 mg HS MAXIMILIANO Administration Cyanocobalamin 1,000 mcg 01/10/25 21:00 01/10/25 20:39 Cyanocobalamin 1,000 Mcg Tablet PO 1,000 mcg HS MAXIMILIANO Administration Diltiazem HCl 120 mg 01/11/25 11:45 01/11/25 12:03 Diltiazem Hcl Cd 120 Mg Cap.24hr PO 120 mg QAM MAXIMILIANO Administration Hyoscyamine 0.125 mg 01/10/25 18:08 Hyoscyamine Sulfate 0.125 Mg Tablet PO QID PRN abd pain Levothyroxine Sodium 100 mcg 01/11/25 06:30 01/11/25 05:30 Levothyroxine Sodium 100 Mcg Tablet PO 100 mcg DAILY@0630 MAXIMILIANO Administration Magnesium Oxide 400 mg 01/10/25 21:00 01/10/25 20:39 Magnesium Oxide 400 Mg Tablet PO 400 mg HS MAIXMILIANO Administration Miscellaneous Information 1 each 01/11/25 00:01 Viberzi Is Nonform; Can Pt Use From Home? XX 02/10/25 00:00 CLARIFY MAXIMILIANO Multivitamins/Calcium 1 tablet 01/10/25 21:00 01/10/25 20:39 Therapeutic Multivitamins/Minerals Tab (*Bkc) PO 1 tablet HS MAXIMILIANO Administration Multivitamins/Minerals 1 tablet 01/10/25 21:00 01/11/25 09:43 Opti-Gen Tab PO 1 tablet Q12HR MAXIMILIANO Administration Non-Formulary Medication 100 mg 01/10/25 18:15 Eluxadoline [Viberzi] PO 02/09/25 18:14 .pc BID MAXIMLIIANO Perflutren Lipid Microsphere 0 ml 01/10/25 16:58 Perflutren Lipid Microspheres 1.5 Ml Vial Diluted To 10 Ml Total Volume IV PUSH 01/13/25 16:58 ONCE PRN adequate visualization Protocol Vitamin D 25 mcg 01/10/25 21:00 01/10/25 20:39 Cholecalciferol (Vitamin D3) 25 Mcg (1,000 Units) Tablet PO 25 mcg HS MAXIMILIANO Administration Radiology Results: ITS Impressions Chest X-Ray 01/10/25 11:58 IMPRESSION: 1. No acute cardiopulmonary findings. Labs Labs: Laboratory Results - last 24 hr 01/11/25 05:37 WBC 6.1 RBC 3.50 L Hgb 10.6 L Hct 31.7 L MCV 90.6 MCH 30.3 MCHC 33.4 RDW 12.7 Plt Count 215 MPV 9.8 Immature Gran % (Auto) 0.2 Neut % (Auto) 56.4 Lymph % (Auto) 32.4 [place] % (Auto) 7.1 Eos % (Auto) 3.1 Baso % (Auto) 0.8 Lymph # (Auto) 1.96 [place] # (Auto) 0.4 Eos # (Auto) 0.2 Baso # (Auto) 0.1 Abs Immat Gran (auto) 0.01 Absolute Neuts (auto) 3.4 Absolute Nucleated RBC 0.000 Nucleated RBC % 0.0 Sodium 138 Potassium 3.8 Chloride 107 Carbon Dioxide 26 Anion Gap 5 BUN 22 H Creatinine 0.87 Estim Creat Clear Calc 57 Estimated GFR > 60 Glucose 75 Calcium 8.7
--- NOTE | 2025-01-11 15:39 | P.PNIM_ITS ---
Progress Note: A&P Assessment and Plan (1) Paroxysmal atrial fibrillation with rapid ventricular response: Code(s): I48.0 - Paroxysmal atrial fibrillation Status: Acute (2) History of IBS: Code(s): Z87.19 - Personal history of other diseases of the digestive system Status: Acute Plan 69-year-old female with PMH hypothyroidism, IBS, osteoporosis presents to [facility] ER on 01/10/2025 complaining of palpitations. She went to her PCPs office and was found to have a heart rate in the 160s, ECG performed revealed supraventricular tachycardia. Valsalva maneuver in the office failed. Patient has a prior history of palpitations with a Holter monitor in 2023 showing supraventricular beats but no SVT/AFib. ----- Atrial flutter with rapid ventricular rate. Patient receive metoprolol. Then Cardizem, converted to normal sinus rhythm. Per Cardiology, continue Cardizem CD 120 mg daily. To evaluate LV systolic function. Plan for 30 day outpatient event monitor. ----- Patient wishes to be full code. Saline lock IV Time Spent With Patient Time with patient: 25 - 35 minutes Subjective Date/time seen: 01/11/25 15:39 Interval history: No major acute overnight events. Patient denies palpitations, chest pain, fever, shortness of breath. Family is at bedside present for discussion. Review of Systems Review of Systems: All systems reviewed & are unremarkable except as noted in HPI and below (Subjective) Exam Const: General: comfortable and no acute distress HENMT: Mouth: Yes moist mucous membranes Eyes: Pupils: Equal, round and reactive pupils present Neck: Neck: supple Resp: Effort & Inspection: normal respiratory effort Auscultation: clear to auscultation bilaterally Cardio: Rate: regular rate Rhythm: regular rhythm Heart sounds: no murmurs GI: Inspection: non-distended GI Palp: Yes Soft to palpation Neuro: Motor exam (neuro): 5/5 motor strength present throughout Extrem: General: no edema Objective Data Vital Signs Vital Signs: Vital Signs - 24 hr 01/10/25 17:11 01/10/25 18:10 01/10/25 20:00 Temperature Pulse Rate 72 Respiratory Rate 12 Blood Pressure 121/51 L Pulse Oximetry 100 Oxygen Delivery Room Air Room Air 01/10/25 20:00 01/10/25 21:45 01/11/25 00:00 Temperature 98 F Pulse Rate 74 77 66 Respiratory Rate 18 Blood Pressure 127/53 L Pulse Oximetry 95 Oxygen Delivery 01/11/25 04:00 01/11/25 06:00 01/11/25 08:00 Temperature 97.6 F Pulse Rate 70 74 65 Respiratory Rate 18 Blood Pressure 124/51 L Pulse Oximetry 97 Oxygen Delivery 01/11/25 08:00 01/11/25 09:45 01/11/25 12:00 Temperature 98.4 F 98.6 F Pulse Rate 74 76 Respiratory Rate 16 18 Blood Pressure 120/52 L 123/64 Pulse Oximetry 98 98 Oxygen Delivery Room Air 01/11/25 12:00 01/11/25 14:00 Temperature 98.4 F Pulse Rate 72 74 Respiratory Rate 16 Blood Pressure 120/52 L Pulse Oximetry 98 Oxygen Delivery Intake/Output Intake/Output: Intake & Output 01/08/25 01/09/25 01/10/25 01/11/25 23:59 23:59 23:59 23:59 Intake Total 1999 630 Balance 1999 630 Meds/Results Medications: Active Medications Generic Name Dose Route Start Last Admin Trade Name Freq PRN Reason Stop Dose Admin Apixaban 5 mg 01/11/25 21:00 Apixaban 5 Mg Tablet PO Q12HR MAXIMILIANO Calcium Carbonate 500 mg 01/10/25 21:00 01/10/25 20:39 Calcium Carbonate (Oscal) 500 Mg Tablet PO 500 mg HS MAXIMILIANO Administration Cyanocobalamin 1,000 mcg 01/10/25 21:00 01/10/25 20:39 Cyanocobalamin 1,000 Mcg Tablet PO 1,000 mcg HS MAXIMILIANO Administration Diltiazem HCl 120 mg 01/11/25 11:45 01/11/25 12:03 Diltiazem Hcl Cd 120 Mg Cap.24hr PO 120 mg QAM MAXIMILIANO Administration Hyoscyamine 0.125 mg 01/10/25 18:08 Hyoscyamine Sulfate 0.125 Mg Tablet PO QID PRN abd pain Levothyroxine Sodium 100 mcg 01/11/25 06:30 01/11/25 05:30 Levothyroxine Sodium 100 Mcg Tablet PO 100 mcg DAILY@0630 MAXIMILIANO Administration Magnesium Oxide 400 mg 01/10/25 21:00 01/10/25 20:39 Magnesium Oxide 400 Mg Tablet PO 400 mg HS MAXIMILIANO Administration Miscellaneous Information 1 each 01/11/25 00:01 Viberzi Is Nonform; Can Pt Use From Home? XX 02/10/25 00:00 CLARIFY MAXIMILIANO Multivitamins/Calcium 1 tablet 01/10/25 21:00 01/10/25 20:39 Therapeutic Multivitamins/Minerals Tab (*Bkc) PO 1 tablet HS MAXIMILIANO Administration Multivitamins/Minerals 1 tablet 01/10/25 21:00 01/11/25 09:43 Opti-Gen Tab PO 1 tablet Q12HR MAXIMILIANO Administration Non-Formulary Medication 100 mg 01/10/25 18:15 Eluxadoline [Viberzi] PO 02/09/25 18:14 .pc BID MAXIMILIANO Perflutren Lipid Microsphere 0 ml 01/10/25 16:58 Perflutren Lipid Microspheres 1.5 Ml Vial Diluted To 10 Ml Total Volume IV PUSH 01/13/25 16:58 ONCE PRN adequate visualization Protocol Vitamin D 25 mcg 01/10/25 21:00 01/10/25 20:39 Cholecalciferol (Vitamin D3) 25 Mcg (1,000 Units) Tablet PO 25 mcg HS MAXIMILIANO Administration Radiology Results: ITS Impressions Chest X-Ray 01/10/25 11:58 IMPRESSION: 1. No acute cardiopulmonary findings. Labs Labs: Laboratory Results - last 24 hr 01/11/25 05:37 WBC 6.1 RBC 3.50 L Hgb 10.6 L Hct 31.7 L MCV 90.6 MCH 30.3 MCHC 33.4 RDW 12.7 Plt Count 215 MPV 9.8 Immature Gran % (Auto) 0.2 Neut % (Auto) 56.4 Lymph % (Auto) 32.4 Marshall % (Auto) 7.1 Eos % (Auto) 3.1 Baso % (Auto) 0.8 Lymph # (Auto) 1.96 Marshall # (Auto) 0.4 Eos # (Auto) 0.2 Baso # (Auto) 0.1 Abs Immat Gran (auto) 0.01 Absolute Neuts (auto) 3.4 Absolute Nucleated RBC 0.000 Nucleated RBC % 0.0 Sodium 138 Potassium 3.8 Chloride 107 Carbon Dioxide 26 Anion Gap 5 BUN 22 H Creatinine 0.87 Estim Creat Clear Calc 57 Estimated GFR > 60 Glucose 75 Calcium 8.7
[2025-01-11] MEDS: APIXABAN 5 MG TABLET PO (20:53)
[2025-01-11] MEDS: CHOLECALCIFEROL (VITAMIN D3) 25 MCG (1,000 UNITS) TABLET PO (20:53)
[2025-01-11] MEDS: THERAPEUTIC MULTIVITAMINS/MINERALS TAB (*BKC) 1 TABLET PO (20:53)
[2025-01-11] MEDS: MAGNESIUM OXIDE 400 MG TABLET PO (20:53)
[2025-01-11] MEDS: CYANOCOBALAMIN 1,000 MCG TABLET 1000 MCG PO (20:53)
[2025-01-11] MEDS: CALCIUM CARBONATE (OSCAL) 500 MG TABLET PO (20:53)
[2025-01-12] VITALS: PULSE 70
[2025-01-12 04:00] VITALS: PULSE 68
[2025-01-12 06:00] VITALS: BP 127/43; PULSE 85; RESP 16; TEMP 36.3; O2SAT 98
[2025-01-12] MEDS: LEVOTHYROXINE SODIUM 100 MCG TABLET PO (06:41)
--- NOTE | 2025-01-12 08:46 | P.DS_ITS ---
DS: Admitting Diagnosis Discharge Date 01/12/2025 Admitting Diagnosis Palpitations DS: Discharge Diagnosis Discharge Diagnosis (1) Atrial flutter with rapid ventricular response: Code(s): I48.92 - Unspecified atrial flutter Status: Acute DS: Summary Hospital Course Hospital Course: 69-year-old female with PMH hypothyroidism, IBS, osteoporosis presents to [facility] ER on 01/10/2025 complaining of palpitations. She went to her PCPs office and was found to have a heart rate in the 160s, ECG performed revealed supraventricular tachycardia. Valsalva maneuver in the office failed. Patient has a prior history of palpitations with a Holter monitor in 2023 showing supraventricular beats but no SVT/AFib. ----- Patient converted to normal sinus rhythm. Cardiology consultation completed. stable for discharge to home on 01/12/2025. Discharged on Cardizem daily, Eliquis 5 mg p.o. b.i.d.. Thirty day event monitor. Echocardiogram on 01/11/2025: Summary 1. Complete two-dimensional, color flow and Doppler transthoracic echocardiogram is performed. 2. Left ventricular chamber dimension is normal. 3. Left ventricular systolic function is normal, estimated at 60-65. 4. There is no increased left ventricular wall thickness. 5. The left ventricular diastolic function is grade I diastolic dysfunction. 6. There is mild mitral valve regurgitation. 7. The mitral valve has thickened leaflets. 8. There is mild tricuspid valve regurgitation. Adverse effects, risk and benefits of medication discussed. All the patient's questions and concerns were answered to satisfaction, she agreed to proceed. The patient was full code. Follow-up with Cardiology in within 2 weeks, PCP within 7 days. Time Spent with Patient Time attestation: Total time spent providing and/or coordinating discharge services: Time spent: Greater than 30 minutes Exam Const: General: comfortable and no acute distress HENMT: Mouth: Yes moist mucous membranes Eyes: Pupils: Equal, round and reactive pupils present Neck: Neck: supple Resp: Effort & Inspection: normal respiratory effort Auscultation: clear to auscultation bilaterally Cardio: Rate: regular rate Rhythm: regular rhythm Heart sounds: no murmurs GI: Inspection: non-distended GI Palp: Yes Soft to palpation Neuro: Motor exam (neuro): 5/5 motor strength present throughout Extrem: General: no edema Discharge Plan Discharge Attending physician on discharge: Marci Trimble Consulting providers: Paddy Mims Discharging Clinician: Marci Trimble Patient Disposition: Home Activity: may shower Diet: as tolerated Patient Instructions: Antibiotic Form Patient Language: Vincentian Stand Alone Forms: General Discharge Information Follow-up/Referrals: Raisa Chirinos MD [Primary Care Provider, Family Practice] Referral Note: Within 7 days Paddy Mims MD [Physician, Cardiology] - 01/16/25 Discharge Medications: New Eliquis 5 mg Tablet 5 mg PO Q12HR Qty: 60 0RF diltiazem HCl 120 mg Capsule,Extended Release 24 Hr 120 mg PO QAM Qty: 30 0RF Continued Viberzi 100 mg tablet 100 mg PO .pc BID calcium 600 mg Capsule 600 mg PO HS magnesium 500 mg Tablet 500 mg PO HS cholecalciferol (vitamin D3) 25 mcg (1,000 unit) Tablet 25 mcg PO HS multivit with min-folic acid 0.4 mg Tablet 1 tablet PO HS mecobalamin (vitamin B12) 1,000 mcg Tablet,Chewable 1,000 mcg PO HS PreserVision AREDS 4,296 mcg-226 mg-90 mg capsule 1 cap PO .q12hr hyoscyamine sulfate 0.125 mg tablet, sublingual 0.125 mg PO QID PRN (Reason: abd pain) Qty: 90 1RF levothyroxine 100 mcg tablet See Rx Instructions .ROUTE .COMPLEX Qty: 90 1RF Dose Instruction: TAKE 1 TABLET BY MOUTH EVERY DAY Rx Instructions: TAKE 1 TABLET BY MOUTH EVERY DAY Other Ambulatory Orders: [place] cardiac event monitor (Routine) Timeframe: 1 Month Location: Determined by Patient Ordered By: Florence Randall Date of admission: 01/10/25 14:55 Primary Care Provider: Raisa Chirinos Admitting Provider: Latonya Hays Attending physician on admission: Latonya Hays Condition: Improved Hospitalist MIPS Heart Failure (Exclusion) Patient has history of Heart Transplant or Left Ventricular Assistive Device?: No IF YES, STOP HERE Heart Failure (Qualifier) Patient has current or prior documentation of LVEF less than or equal to 40%, or mod/servere depressed LVSF?: No IF NO, STOP HERE
--- NOTE | 2025-01-12 08:46 | PM.PNCARD ---
Progress Note: A&P Assessment and Plan (1) Paroxysmal atrial fibrillation with rapid ventricular response: Code(s): I48.0 - Paroxysmal atrial fibrillation Status: Acute Assessment and Plan: Continue diltiazem and Eliquis Potassium also low normal will give 20 mEq oral potassium chloride x1 Outpatient monitor as already detailed in previous notes. Follow-up in our office within 2-4 weeks (2) History of IBS: Code(s): Z87.19 - Personal history of other diseases of the digestive system Status: Acute (3) Hypothyroid: Qualifiers: Hypothyroidism type: acquired Qualified Code(s): E03.9 - Hypothyroidism, unspecified Code(s): E03.9 - Hypothyroidism, unspecified Status: Chronic Assessment and Plan: continue replacement (4) Anemia: Code(s): D64.9 - Anemia, unspecified Status: Acute Assessment and Plan: blood counts did drop from 11 6-11 7 and I do not see did any follow-up has been ordered. Will recheck a CBC before she goes home. Subjective Date/time seen: 01/12/25 08:46 Interval history: 69-YEAR-OLD WITH ATRIAL FIBRILLATION Date of Service 01/11/25: Patient is sitting up in bed family at bedside. She overall feels well. No dizziness, palpitations, chest pain or shortness of breath at this time. Date of service 01/12/2025: Still here for unknown reasons. Echocardiogram read yesterday and is unremarkable. No chest pain or shortness of breath and anxious to go home 2. Left ventricular chamber dimension is normal. 3. Left ventricular systolic function is normal, estimated at 60-65. 4. There is no increased left ventricular wall thickness. 5. The left ventricular diastolic function is grade I diastolic dysfunction. 6. There is mild mitral valve regurgitation. 7. The mitral valve has thickened leaflets. 8. There is mild tricuspid valve regurgitation. Review of Systems Review of Systems: All systems reviewed & are unremarkable except as noted in HPI and below Cardiovascular: Cardiovascular: Denies chest pain and Denies palpitations Exam Narrative: Patient was examined at the bedside. Patient is awake alert and appears comfortable without distress or shortness of breath. Head and neck examination is unremarkable. Sclerae is nonicteric. ENT examination is negative. Neck is supple there is no JVD or carotid bruit. Lungs are clear auscultation percussion. Heart sounds reveal normal S1-S2. There is no S3-S4. Abdomen is soft and nontender. There is no hepatosplenomegaly probable sounds present. Extremities revealed no pedal edema. Neurological examination is intact. Const: General: comfortable and no acute distress Eyes: Sclera: sclerae normal Neck: Neck: supple and No no JVD Thyroid: thyroid normal Resp: Effort & Inspection: normal respiratory effort Cardio: Rate: regular rate Rhythm: regular rhythm Heart sounds: no gallops, no murmurs and no rubs Skin: General skin exam: normal color Neuro: Speech: normal speech Extrem: General: normal to inspection and no edema Psych: Mental Status: mental status grossly normal Objective Data Vital Signs Vital Signs: Vital Signs - 24 hr 01/11/25 09:45 01/11/25 12:00 01/11/25 12:00 Temperature 37.0 C Pulse Rate 76 72 Respiratory Rate 18 Blood Pressure 123/64 Pulse Oximetry 98 Oxygen Delivery Room Air 01/11/25 14:00 01/11/25 16:00 01/11/25 16:00 Temperature 36.9 C 36.9 C Pulse Rate 74 73 76 Respiratory Rate 16 18 Blood Pressure 120/52 L 120/52 L Pulse Oximetry 98 100 Oxygen Delivery 01/11/25 20:00 01/11/25 20:00 01/11/25 20:00 Temperature 36.9 C Pulse Rate 85 73 Respiratory Rate 16 Blood Pressure 124/62 Pulse Oximetry 98 Oxygen Delivery Room Air 01/11/25 22:00 01/12/25 00:00 01/12/25 04:00 Temperature 36.9 C Pulse Rate 73 70 68 Respiratory Rate 16 Blood Pressure 124/62 Pulse Oximetry 98 Oxygen Delivery 01/12/25 06:00 Temperature 36.3 C L Pulse Rate 85 Respiratory Rate 16 Blood Pressure 127/43 L Pulse Oximetry 98 Oxygen Delivery Intake/Output Intake/Output: Intake & Output 01/09/25 01/10/25 01/11/25 01/12/25 23:59 23:59 23:59 23:59 Intake Total 1999 2370 600 Balance 1999 2370 600 Meds/Results Medications: Active Medications Generic Name Dose Route Start Last Admin Trade Name Freq PRN Reason Stop Dose Admin Apixaban 5 mg 01/11/25 21:00 01/11/25 20:53 Apixaban 5 Mg Tablet PO 5 mg Q12HR MAXIMILIANO Administration Calcium Carbonate 500 mg 01/10/25 21:00 01/11/25 20:53 Calcium Carbonate (Oscal) 500 Mg Tablet PO 500 mg HS MAXIMILIANO Administration Cyanocobalamin 1,000 mcg 01/10/25 21:00 01/11/25 20:53 Cyanocobalamin 1,000 Mcg Tablet PO 1,000 mcg HS MAXIMILIANO Administration Diltiazem HCl 120 mg 01/11/25 11:45 01/11/25 12:03 Diltiazem Hcl Cd 120 Mg Cap.24hr PO 120 mg QAM MAXIMILIANO Administration Hyoscyamine 0.125 mg 01/10/25 18:08 Hyoscyamine Sulfate 0.125 Mg Tablet PO QID PRN abd pain Levothyroxine Sodium 100 mcg 01/11/25 06:30 01/12/25 06:41 Levothyroxine Sodium 100 Mcg Tablet PO 100 mcg DAILY@0630 MAXIMILIANO Administration Magnesium Oxide 400 mg 01/10/25 21:00 01/11/25 20:53 Magnesium Oxide 400 Mg Tablet PO 400 mg HS MAXIMILIANO Administration Miscellaneous Information 1 each 01/11/25 00:01 Viberzi Is Nonform; Can Pt Use From Home? XX 02/10/25 00:00 CLARIFY MAXIMILIANO Multivitamins/Calcium 1 tablet 01/10/25 21:00 01/11/25 20:53 Therapeutic Multivitamins/Minerals Tab (*Bkc) PO 1 tablet HS [facility] Administration Multivitamins/Minerals 1 tablet 01/10/25 21:00 01/11/25 20:53 Opti-Gen Tab PO 1 tablet Q12HR MAXIMILIANO Administration Non-Formulary Medication 100 mg 01/10/25 18:15 Eluxadoline [Viberzi] PO 02/09/25 18:14 .pc BID MAXIMILIANO Perflutren Lipid Microsphere 0 ml 01/10/25 16:58 Perflutren Lipid Microspheres 1.5 Ml Vial Diluted To 10 Ml Total Volume IV PUSH 01/13/25 16:58 ONCE PRN adequate visualization Protocol Vitamin D 25 mcg 01/10/25 21:00 01/11/25 20:53 Cholecalciferol (Vitamin D3) 25 Mcg (1,000 Units) Tablet PO 25 mcg HS MAXIMILIANO Administration Radiology Results: ITS Impressions Chest X-Ray 01/10/25 11:58 IMPRESSION: 1. No acute cardiopulmonary findings. echo 2. Left ventricular chamber dimension is normal. 3. Left ventricular systolic function is normal, estimated at 60-65. 4. There is no increased left ventricular wall thickness. 5. The left ventricular diastolic function is grade I diastolic dysfunction. 6. There is mild mitral valve regurgitation. 7. The mitral valve has thickened leaflets. 8. There is mild tricuspid valve regurgitation.
[2025-01-12] MEDS: OPTI-GEN TAB 1 TABLET PO (08:58)
[2025-01-12] MEDS: POTASSIUM CHLORIDE 20 MEQ ER TABLET PO (08:58)
[2025-01-12] MEDS: dilTIAZem HCL CD 120 MG CAP.24HR PO (08:58)
[2025-01-12] MEDS: APIXABAN 5 MG TABLET PO (08:58)
== END 2025-01-12 09:40 | disposition home or self-care (01) ==
LOC: ANHED 11:57 → ANH3MED 19:14
PROVIDERS: Nurse Practitioner Adult Health; Admitting Provider Family Medicine; Emergency Provider Physician Assistant; PCP Family Medicine; Visit Provider General Practice
DX: I48.92 Unspecified atrial flutter (principal); I48.0 Paroxysmal atrial fibrillation; R00.0 Tachycardia, unspecified; D64.9 Anemia, unspecified; M81.0 Age-related osteoporosis without current pathological fracture; E03.9 Hypothyroidism, unspecified; K58.9 Irritable bowel syndrome, unspecified
CPT/HCPCS: 36415; 71046; 80048; 80053; 83690; 84443; 84484; 85025; 85380; 85610; 85730; 93005; 93306; 96361; 96372; 96374; 96375; 99285; A9270; G0378; J0616; J1650; J7030

== ENCOUNTER 2025-01-31 11:22 | Emergency (ER) | payer MEDICARE, SELFPAY ==
--- NOTE | ~2025-01-31 | XR_ITS ---
EXAM/PROCEDURE: XR chest 2V HISTORY: Palpitations COMPARISON: January 10 TECHNIQUE: Two view(s) of the chest. FINDINGS: LUNGS: Clear of acute processes. There is hyperinflation, consistent with COPD in the appropriate clinical setting. PLEURAL SPACES: Clear. No evidence of fluid or pneumothorax. HEART/ MEDIASTINUM: Normal in appearance. SOFT TISSUES: No significant findings. BONES: No acute osseous abnormality. IMPRESSION: No acute findings. COPD type changes. Reviewed, dictated and finalized at location A. NOLOGY INTEGRATION SPECIALIST
[2025-01-31 11:26] VITALS: BP 134/84; PULSE 166; RESP 18; TEMP 36.6; O2SAT 99
--- NOTE | 2025-01-31 11:40 | ECG_ITS ---
Test Date: 2025-01-31 11:43:07 Measurements Intervals [place] Rate: 146 P: 0 ME: 0 QRS: 74 QRSD: 94 T: 21 QT: 286 QTc: 446 Interpretive Statements SUPRAVENTRICULAR TACHYCARDIA ABNORMAL RHYTHM ECG Compared to ECG 01/11/2025 09:15:38 Sinus rhythm no longer present Electronically Signed On 01-31-2025 12:31:32 ONCOLOGY PHARMACIST by Luis Saeed M.D.
[2025-01-31 12:04] LABS: Hematocrit 37.0 % (37.0-47.0); Hemoglobin 12.3 g/dL (12.0-15.0); Immature Granulocyte Percent A 0.3 % (0-0.5); Lymphocytes Absolute Auto 1.24 K/mm3 (0.9-3.2); Mean Corpuscular HGB Conc 33.2 g/dl (32-36); Mean Corpuscular Hemoglobin 30.2 pg (26-34); Mean Corpuscular Volume 90.9 fl (80-100); Nucleated Red Blood Cells Absolute Auto 0.000 K/mm3 (0.0-0.012); Nucleated Red Blood Cells Perc 0.0 % (0.0-0.2); Platelet Count Result 207 k/mm3 (150-375); Red Blood Count 4.07 M/mm3 (4.2-5.4); White Blood Count 6.2 K/mm3 (4.5-10.0)
[2025-01-31] MEDS: SODIUM CHLORIDE 0.9% IV 1,000 ML 999 ML IV CONT (12:09)
[2025-01-31 12:15] LABS: INR 1.4; Partial Thromboplastin Time 32.0 Seconds (22.3-36.8); Prothrombin Time 16.6 Seconds (11.1-14.7)
[2025-01-31 12:17] LABS: Alanine Aminotransferase 43 U/L (6-35); Albumin Level 4.3 g/dL (3.5-5.1); Alkaline Phosphatase 101 U/L (38-126); Anion Gap 5 mmol/L (4-12); Aspartate Amino Transferase 44 U/L (14-36); Bilirubin,Total 0.5 mg/dL (0.2-1.3); Blood Urea Nitrogen 27 mg/dL (7-17); Calcium 9.4 mg/dL (8.4-10.2); Carbon Dioxide 27 mmol/L (22-30); Chloride 105 mmol/L (98-107); Estimated CRCL calculation 48 ml/min; Estimated Glomerular Filt Rate 55; Glucose 116 mg/dL (65-110); Magnesium 2.2 mg/dL (1.6-2.3); Potassium 3.9 mmol/L (3.4-5.0); Sodium 137 mmol/L (137-145); Total Protein 7.0 g/dL (6.3-8.2)
--- NOTE | 2025-01-31 12:17 | ECG_ITS ---
Test Date: 2025-01-31 12:20:14 Measurements Intervals [place] Rate: 90 P: 73 TN: 175 QRS: 70 QRSD: 89 T: 54 QT: 358 QTc: 439 Interpretive Statements SINUS RHYTHM NONSPECIFIC T-WAVE ABNORMALITY ABNORMAL ECG Compared to ECG 01/31/2025 11:43:07 Supraventricular tachycardia no longer present Electronically Signed On 01-31-2025 12:32:58 DEPOSITING MACHINE OPERATOR by Luis Saeed M.D.
[2025-01-31 12:28] LABS: Troponin I 0.013 ng/mL (0.000-0.034)
[2025-01-31 12:45] LABS: Thyroid Stimulating Hormone Reflex 3.580 uIU/mL (0.465-4.68)
--- NOTE | 2025-01-31 12:50 | ED.ARRPALP ---
HPI - Arrhythmia/Palpitations General Chief Complaint: Arrhythmia/Palpitations Stated Complaint: high hr Time Seen by Provider: 01/31/25 11:42 Source: patient and old records reviewed Mode of arrival: ambulatory Limitations: no limitations History of Present Illness HPI narrative: Patient is a 69-year-old female who presents the ED with report of palpitations. Patient reports she went on a 2mile fun walk this morning and felt fine. Was prepping Thanskgiving lunch when she began noticing her heart racing around 10:15 a.m.. She then prompted here for further evaluation. Patient was seen here at the beginning of January for similar symptoms. Was diagnosed with atrial flutter with 2-1 block. Converted back to sinus rhythm with Cardizem. Started on Cardizem p.o. and Eliquis upon discharge. Currently taking 120 mg of Cardizem ER in the mornings. Took her normal dose this morning. Has not missed any doses of eliquis. Reported feeling slightly winded walking into the ED, denies significant SOB. Denies CP, dizziness, lightheadedness. Related Data Home Medications ?Medication ?Instructions ?Recorded ?Confirmed ?Last Taken ?Type calcium 600 mg capsule 600 mg PO HS 04/08/22 01/22/25 01/09/25 History cholecalciferol (vitamin D3) 25 25 mcg PO HS 04/08/22 01/22/25 01/09/25 History mcg (1,000 unit) tablet magnesium 500 mg tablet 500 mg PO HS 04/08/22 01/22/25 01/09/25 History mecobalamin (vitamin B12) 1,000 1,000 mcg PO HS 04/08/22 01/22/25 01/09/25 History mcg chewable tablet multivitamin with minerals-folic 1 tablet PO HS 04/08/22 01/22/25 01/09/25 History acid 0.4 mg tablet vitamins A,C,G-kteq-eqqayy 4,296 1 cap PO .q12hr 05/25/22 01/22/25 01/10/25 History mcg-226 mg-90 mg capsule (PreserVision AREDS) eluxadoline 100 mg tablet (Viberzi) 100 mg PO .pc BID 01/10/25 01/22/25 01/10/25 History Allergies Allergy/AdvReac Type Severity Reaction Status Date / Time lactose AdvReac Mild Diarrhea Verified 01/22/25 08:50 Review of Systems Review of Systems: All systems reviewed & are unremarkable except as noted in HPI. All systems reviewed & are unremarkable except as noted in HPI and below PMFSH Past Medical History Medical History Osteoporosis failed ibandronate/ failed prolia 2020/ reclast Hypothyroid Surgical History Surgical History H/O colonoscopy (~03/2018) Family History Family History Father Hypertension Mother Family history of emphysema Son Hypertension Social History Social History Smoking status: Never smoker Alcohol intake: current Alcohol use details: socially Substance use: never Substance use type: does not use Lack of Transportation: No Lack of Food: Never True Current Housing: I Have Housing Concerned About Future Housing: No Difficulty Paying Gas/Electric Bills: No Difficulty Paying for Meds: No Currently Unemployed: No Education: Master's Degree or Higher Difficulty w/ Childcare or Family Care: No Living arrangements: with family Spiritual care concerns: No Exam Narrative: GENERAL: Well appearing, thin, non-toxic, in no acute distress. HEAD: Normocephalic, atraumatic. RESPIRATORY: Airway patent, respirations nonlabored. Clear to auscultation bilaterally, no rales, rhonchi, wheezing. CARDIOVASCULAR: Tachycardic with regular rhythm without murmurs, rubs, or gallops. Peripheral pulses intact MUSCULOSKELETAL: Moves all extremities. No gross deformities. SKIN: Warm, dry, normal color. NEURO: A&O X3. Speech clear. Cranial nerves II-XII grossly intact. Steady gait. No ataxic movements. PSYCHIATRIC: Appropriate mood and affect. Normal interaction. Course Vital Signs Vital signs: Vital Signs Temperature 97.8 F 01/31/25 11:26 Pulse Rate 166 H 01/31/25 11:26 Respiratory Rate 18 01/31/25 11:26 Blood Pressure 134/84 01/31/25 11:26 Pulse Oximetry 99 01/31/25 11:26 Oxygen Delivery Room Air 01/31/25 11:26 Temperature 97.8 F 01/31/25 11:26 Pulse Rate 81 01/31/25 13:17 Respiratory Rate 16 01/31/25 13:17 Blood Pressure 124/85 01/31/25 13:17 Pulse Oximetry 99 01/31/25 13:17 Oxygen Delivery Room Air 01/31/25 11:26 MDM - Arrhythmia/Palpitations MDM Narrative Medical decision making narrative: Patient presented to ED with palpitations, tachycardia, recent diagnosis of paroxysmal atrial flutter with 2-1 block. Recent hospitalization for such. Patient tachycardic into the 150s to 160s upon arrival. Initial EKG showing supraventricular tachycardia. Does appear similar to initial EKGs on last ER visit/hospitalization. No concerning ST changes Patient otherwise stable. Denying any significant sx's aside from feeling her heart racing. Afebrile. O2 stable on RA Patient given Cardizem 10mg IV Push. Patient subsequently converted back to sinus rhythm. Rates in the 80s. This is the medication that was given during last hospitalization and did successfully convert her then as well. Repeat EKG obtained. No concerning ST changes. Patient feeling significantly better. Laboratory studies are reassuring. Stable electrolytes. Stable magnesium. TSH within normal range. Troponin within normal range. Chest x-ray clear. Discussed case with Dr. Saeed, cardiology, agrees w/ plan for d/c home, continue Holter, f/u as outpatient at her scheduled appointments. No recommendations on medication adjustment at this time. Patient is in agreement with this plan. Feels comfortable going home. Discussed strict return precautions. Patient voiced understanding. D/C in stable condition. VSS at time of d/c. Medical Records Attestation: I reviewed the patient's medical records. Lab Data Attestation: I reviewed the patient's lab results. 01/31/25 11:56 01/31/25 11:56 Labs: Lab Results 01/31/25 Range/Units 11:56 WBC 6.2 (4.5-10.0) K/mm3 RBC 4.07 L (4.2-5.4) M/mm3 Hgb 12.3 (12.0-15.0) g/dL Hct 37.0 (37.0-47.0) % MCV 90.9 (80-100) fl MCH 30.2 (26-34) pg MCHC 33.2 (32-36) g/dl RDW 12.6 (11.5-14.5) % Plt Count 207 (150-375) k/mm3 MPV 9.7 (7.4-10.4) fl Immature Gran % (Auto) 0.3 (0-0.5) % Neut % (Auto) 70.1 (45.5-73.1) % Lymph % (Auto) 20.2 (18.3-44.2) % [place] % (Auto) 7.3 (2.6-8.5) % Eos % (Auto) 1.6 (0-4.4) % Baso % (Auto) 0.5 (0.2-1.2) % Lymph # (Auto) 1.24 (0.9-3.2) K/mm3 [place] # (Auto) 0.5 (0.1-0.6) K/mm3 Eos # (Auto) 0.1 (0-0.3) K/mm3 Baso # (Auto) 0.0 (0.0-0.1) K/mm3 Abs Immat Gran (auto) 0.02 (0.00-0.031) K/mm3 Absolute Neuts (auto) 4.3 (1.3-6.7) K/mm3 Absolute Nucleated RBC 0.000 (0.0-0.012) K/mm3 Nucleated RBC % 0.0 (0.0-0.2) % PT 16.6 H (11.1-14.7) Seconds INR 1.4 APTT 32.0 (22.3-36.8) Seconds Sodium 137 (137-145) mmol/L Potassium 3.9 (3.4-5.0) mmol/L Chloride 105 (98-107) mmol/L Carbon Dioxide 27 (22-30) mmol/L Anion Gap 5 (4-12) mmol/L BUN 27 H (7-17) mg/dL Creatinine 1.01 H (0.7-1.0) mg/dL Estim Creat Clear Calc 48 ml/min Estimated GFR 55 L (59 - ) Glucose 116 H (65-110) mg/dL Calcium 9.4 (8.4-10.2) mg/dL Magnesium 2.2 (1.6-2.3) mg/dL Total Bilirubin 0.5 (0.2-1.3) mg/dL AST 44 H (14-36) U/L ALT 43 H (6-35) U/L Alkaline Phosphatase 101 (38-126) U/L Troponin I 0.013 (0.000-0.034) ng/mL Total Protein 7.0 (6.3-8.2) g/dL Albumin 4.3 (3.5-5.1) g/dL TSH (Reflex) 3.580 (0.465-4.68) uIU/mL Imaging Data Attestation: I personally reviewed and interpreted this imaging study as follows: Radiologist's impression: ITS Impressions Chest X-Ray 01/31/25 12:05 IMPRESSION: No acute findings. COPD type changes. ECG Data EKG #1: Attestation: I personally reviewed and interpreted this ECG as follows: ECG completion date: 01/31/25 ECG completion time: 12:20 EKG Interpretation: normal rate (90), sinus rhythm and non-specific ST changes Discharge Plan Discharge Clinical Impression: Paroxysmal atrial flutter, Tachycardia Patient Disposition: Home Condition: Stable Instructions: Antibiotic Form, Atrial Flutter (ED), Heart Palpitations (ED) Additional Instructions: Continue home medications as prescribed. It is important you do not miss any doses. Continue to follow-up with Cardiology at your scheduled appointments. Return to the ED if you experience recurrent symptoms, persistently elevated heart rate, chest pain, difficulty breathing, feeling very dizzy or lightheaded, passing out, unable to keep down food or drink, pain or swelling in your legs, or any other symptoms of concern. Patient Language: Thai Prescriptions: No Action Viberzi 100 mg tablet 100 mg PO .pc BID Eliquis 5 mg Tablet 5 mg PO Q12HR Qty: 60 0RF diltiazem HCl 120 mg Capsule,Extended Release 24 Hr 120 mg PO QAM Qty: 30 0RF calcium 600 mg Capsule 600 mg PO HS magnesium 500 mg Tablet 500 mg PO HS cholecalciferol (vitamin D3) 25 mcg (1,000 unit) Tablet 25 mcg PO HS multivit with min-folic acid 0.4 mg Tablet 1 tablet PO HS mecobalamin (vitamin B12) 1,000 mcg Tablet,Chewable 1,000 mcg PO HS PreserVision AREDS 4,296 mcg-226 mg-90 mg capsule 1 cap PO .q12hr hyoscyamine sulfate 0.125 mg tablet, sublingual 0.125 mg PO QID PRN (Reason: abd pain) Qty: 90 1RF levothyroxine 100 mcg tablet See Rx Instructions .ROUTE .COMPLEX Qty: 90 1RF Dose Instruction: TAKE 1 TABLET BY MOUTH EVERY DAY Rx Instructions: TAKE 1 TABLET BY MOUTH EVERY DAY Follow-up/Referrals: Raisa Chirinos MD [Primary Care Provider, Family Practice] Paddy Mims MD [Physician, Cardiology] Referral Note: CARDIOLOGY Time of Disposition: 13:04
[2025-01-31 13:17] VITALS: BP 124/85; PULSE 81; RESP 16; O2SAT 99
== END 2025-01-31 13:26 | disposition home or self-care (01) ==
PROVIDERS: Emergency Provider Physician Assistant; PCP Family Medicine
DX: I48.92 Unspecified atrial flutter (principal); I47.10 Supraventricular tachycardia, unspecified; E03.9 Hypothyroidism, unspecified; M81.0 Age-related osteoporosis without current pathological fracture; Z79.01 Long term (current) use of anticoagulants; Z79.899 Other long term (current) drug therapy; R94.31 Abnormal electrocardiogram [ECG] [EKG]
CPT/HCPCS: 36415; 71046; 80053; 83735; 84443; 84484; 85025; 85610; 85730; 93005; 96361; 96374; 99284; J1163; J7030

== ENCOUNTER 2025-03-05 18:19 | Emergency (ER) | payer MEDICARE, SELFPAY ==
[2025-03-05] VITALS (10 sets, daily range): BP systolic 116–145; BP diastolic 63–92; PULSE 55–156; RESP 14–22; TEMP 37; O2SAT 96–100
--- NOTE | 2025-03-05 18:20 | ECG_ITS ---
Test Date: 2025-03-05 18:52:01 Measurements Intervals [place] Rate: 153 P: 0 GA: 0 QRS: 79 QRSD: 96 T: 61 QT: 290 QTc: 464 Interpretive Statements SUPRAVENTRICULAR TACHYCARDIA DELAYED PRECORDIAL R/S TRANSITION BASELINE ARTIFACT- I, III, AVL ABNORMAL ECG Compared to ECG 01/31/2025 12:20:14 Sinus rhythm no longer present Electronically Signed On 03-05-2025 19:13:55 [employer] M[employer] OPERATOR by Chandana Johnson D.O.
[2025-03-05] MEDS: ADENOSINE IV SOLN 6 MG/2 ML VIAL 18 MG (19:16)
[2025-03-05] MEDS: SODIUM CHLORIDE 0.9% IV 1,000 ML 999 ML (19:16)
--- NOTE | 2025-03-05 19:19 | ECG_ITS ---
Test Date: 2025-03-05 19:22:16 Measurements Intervals [place] Rate: 97 P: 84 MT: 172 QRS: 64 QRSD: 89 T: 65 QT: 364 QTc: 463 Interpretive Statements SINUS RHYTHM DELAYED PRECORDIAL R/S TRANSITION BASELINE ARTIFACT- I, II, III, AVR, AVL, AVF, V1-V6 BORDERLINE ECG Compared to ECG 03/05/2025 18:52:01 Supraventricular tachycardia no longer present Electronically Signed On 03-05-2025 19:27:58 HEALTH INFORMATION ADMINISTRATOR by Chandana Johnson D.O.
[2025-03-05 19:22] LABS: Hematocrit 38.6 % (37.0-47.0); Hemoglobin 12.8 g/dL (12.0-15.0); Immature Granulocyte Percent A 0.1 % (0-0.5); Lymphocytes Absolute Auto 1.98 K/mm3 (0.9-3.2); Mean Corpuscular HGB Conc 33.2 g/dl (32-36); Mean Corpuscular Hemoglobin 30.6 pg (26-34); Mean Corpuscular Volume 92.3 fl (80-100); Nucleated Red Blood Cells Absolute Auto 0.000 K/mm3 (0.0-0.012); Nucleated Red Blood Cells Perc 0.0 % (0.0-0.2); Platelet Count Result 262 k/mm3 (150-375); Red Blood Count 4.18 M/mm3 (4.2-5.4); White Blood Count 7.5 K/mm3 (4.5-10.0)
[2025-03-05 19:32] LABS: Alanine Aminotransferase 45 U/L (6-35); Albumin Level 4.2 g/dL (3.5-5.1); Alkaline Phosphatase 88 U/L (38-126); Anion Gap 7 mmol/L (4-12); Aspartate Amino Transferase 45 U/L (14-36); Bilirubin,Total 0.3 mg/dL (0.2-1.3); Blood Urea Nitrogen 29 mg/dL (7-17); Calcium 9.6 mg/dL (8.4-10.2); Carbon Dioxide 28 mmol/L (22-30); Chloride 107 mmol/L (98-107); Estimated CRCL calculation 44 ml/min; Estimated Glomerular Filt Rate 51; Glucose 143 mg/dL (65-110); INR 1.2; Lipase 229 U/L (23-300); Potassium 3.8 mmol/L (3.4-5.0); Prothrombin Time 15.4 Seconds (11.1-14.7); Sodium 142 mmol/L (137-145); Total Protein 7.0 g/dL (6.3-8.2)
[2025-03-05 19:33] LABS: Partial Thromboplastin Time 30.2 Seconds (22.3-36.8)
[2025-03-05 19:43] LABS: Troponin I < 0.012 ng/mL (0.000-0.034)
--- NOTE | 2025-03-05 19:46 | ED.ARRPALP ---
HPI - Arrhythmia/Palpitations General Chief Complaint: Arrhythmia/Palpitations Stated Complaint: heart racing Time Seen by Provider: 03/05/25 19:06 History of Present Illness HPI narrative: 69-year-old female with history of paroxysmal a flutter / SVT currently with treatment regimen including Cardizem and Eliquis. She has not missed any dosages of any other medications. Today she was on the couch not doing anything particularly strenuous or exertional and then noticed that her heart rate suddenly spiked up and feels like it was exactly the same as her previous episodes. Has had several episodes most recently about 1 month prior. Has an upcoming cardiology appointment in 3 days. Was otherwise in her normal state of health. Denies any symptoms at this time besides feeling her heart rate elevated. No nausea, vomiting, chest pain, shortness a breath no abdominal pain, back pain, fever, chills. Is due for nightly dose of Eliquis and took her 120 mg of Cardizem this morning. Related Data Home Medications ?Medication ?Instructions ?Recorded ?Confirmed ?Last Taken ?Type calcium 600 mg capsule 600 mg PO HS 04/08/22 01/22/25 01/09/25 History cholecalciferol (vitamin D3) 25 25 mcg PO HS 04/08/22 01/22/25 01/09/25 History mcg (1,000 unit) tablet magnesium 500 mg tablet 500 mg PO HS 04/08/22 01/22/25 01/09/25 History mecobalamin (vitamin B12) 1,000 1,000 mcg PO HS 04/08/22 01/22/25 01/09/25 History mcg chewable tablet multivitamin with minerals-folic 1 tablet PO HS 04/08/22 01/22/25 01/09/25 History acid 0.4 mg tablet vitamins A,C,L-byfp-qhgmsd 4,296 1 cap PO .q12hr 05/25/22 01/22/25 01/10/25 History mcg-226 mg-90 mg capsule (PreserVision AREDS) Allergies Allergy/AdvReac Type Severity Reaction Status Date / Time lactose AdvReac Mild Diarrhea Verified 03/05/25 18:48 Review of Systems Review of Systems: As reviewed above in HPI All systems reviewed & are unremarkable except as noted in HPI and below PMFSH Past Medical History Medical History Osteoporosis failed ibandronate/ failed prolia 2020/ reclast Hypothyroid Surgical History Surgical History H/O colonoscopy (~03/2018) Family History Family History Father Hypertension Mother Family history of emphysema Son Hypertension Social History Social History Smoking status: Never smoker Alcohol intake: current Alcohol use details: socially Substance use: never Substance use type: does not use Lack of Transportation: No Lack of Food: Never True Current Housing: I Have Housing Concerned About Future Housing: No Difficulty Paying Gas/Electric Bills: No Difficulty Paying for Meds: No Currently Unemployed: No Education: Master's Degree or Higher Difficulty w/ Childcare or Family Care: No Living arrangements: with family Spiritual care concerns: No Exam Narrative: GENERAL: [Well-appearing, well-nourished, and in no acute distress.] HEAD: [Normocephalic, atraumatic.] EYES: [PERRLA and EOMI.] ENT: Nares clear, no rhinorrhea or epistaxis. Mucous membranes moist. NECK: Supple. CHEST: [Clear to auscultation. No respiratory distress.] HEART: rapid rate, regular rhythm, warm extremities, 2+ pulses ABDOMEN: [Soft, nondistended], [nontender], [No rigidity or guarding] EXTREMITIES: Normal range of motion. [No edema.] SKIN: Warm, dry, no rash. NEURO: [No focal deficits]. Alert and oriented [x3.] PSYCH: [Normal mood and affect.] Course Vital Signs Vital signs: Vital Signs Temperature 37.0 C 03/05/25 18:46 Pulse Rate 55 L 03/05/25 18:46 Respiratory Rate 16 03/05/25 18:46 Blood Pressure 116/79 03/05/25 18:46 Pulse Oximetry 96 03/05/25 18:46 Oxygen Delivery Room Air 03/05/25 18:46 Temperature 37.0 C 03/05/25 18:46 Pulse Rate 86 03/05/25 21:01 Respiratory Rate 15 03/05/25 21:01 Blood Pressure 127/63 03/05/25 21:01 Pulse Oximetry 100 03/05/25 21:01 Oxygen Delivery Room Air 03/05/25 18:46 [facility] Narrative Medical decision making narrative: 69-year-old female with history of paroxysmal a flutter / SVT currently with treatment regimen including Cardizem and Eliquis. She has not missed any dosages of any other medications. Today she was on the couch not doing anything particularly strenuous or exertional and then noticed that her heart rate suddenly spiked up and feels like it was exactly the same as her previous episodes. Has had several episodes most recently about 1 month prior. Has an upcoming cardiology appointment in 3 days. Was otherwise in her normal state of health. Denies any symptoms at this time besides feeling her heart rate elevated. No nausea, vomiting, chest pain, shortness a breath no abdominal pain, back pain, fever, chills. Is due for nightly dose of Eliquis and took her 120 mg of Cardizem this morning. Patient is well-appearing and has no symptoms besides feeling or elevated heart rate. Currently heart rate is stable in the 150s. Normal blood pressure. No tachypnea or hypoxemia. No fever. Warm extremities and no symptoms of hypoperfusion. EKG obtained confirmed SVT. Patient has been compliant with Cardizem and Eliquis. Will attempt adenosine and she was given 6 mg IV push and had immediate conversion back to normal sinus rhythm sustained. Laboratory studies obtained and she was placed on hospital monitor and re-evaluated. Repeat EKG shows normal sinus rhythm without any ST segment concerns. Will observe for brief period and likely discharge with Cardiology follow-up assuming no recurrence. Patient has been asymptomatic during her observation. Expressing desire to go home. Given her resolution of symptoms and no recurrence I believe she can be safely discharged with Cardiology follow-up. Questions answered return precautions described. Differential Diagnosis Differential Diagnosis: SVT, a flutter, AFib, electrolyte abnormalities. Lab Data [facility] Lab Attestation statement: I personally reviewed the patient's lab results. 03/05/25 19:02 03/05/25 19:02 Labs: Lab Results 03/05/25 Range/Units 19:02 WBC 7.5 (4.5-10.0) K/mm3 RBC 4.18 L (4.2-5.4) M/mm3 Hgb 12.8 (12.0-15.0) g/dL Hct 38.6 (37.0-47.0) % MCV 92.3 (80-100) fl MCH 30.6 (26-34) pg MCHC 33.2 (32-36) g/dl RDW 12.4 (11.5-14.5) % Plt Count 262 (150-375) k/mm3 MPV 10.0 (7.4-10.4) fl Immature Gran % (Auto) 0.1 (0-0.5) % Neut % (Auto) 61.8 (45.5-73.1) % Lymph % (Auto) 26.4 (18.3-44.2) % [place] % (Auto) 7.7 (2.6-8.5) % Eos % (Auto) 3.2 (0-4.4) % Baso % (Auto) 0.8 (0.2-1.2) % Lymph # (Auto) 1.98 (0.9-3.2) K/mm3 [place] # (Auto) 0.6 (0.1-0.6) K/mm3 Eos # (Auto) 0.2 (0-0.3) K/mm3 Baso # (Auto) 0.1 (0.0-0.1) K/mm3 Abs Immat Gran (auto) 0.01 (0.00-0.031) K/mm3 Absolute Neuts (auto) 4.6 (1.3-6.7) K/mm3 Absolute Nucleated RBC 0.000 (0.0-0.012) K/mm3 Nucleated RBC % 0.0 (0.0-0.2) % PT 15.4 H (11.1-14.7) Seconds INR 1.2 APTT 30.2 (22.3-36.8) Seconds Sodium 142 (137-145) mmol/L Potassium 3.8 (3.4-5.0) mmol/L Chloride 107 (98-107) mmol/L Carbon Dioxide 28 (22-30) mmol/L Anion Gap 7 (4-12) mmol/L BUN 29 H (7-17) mg/dL Creatinine 1.07 H (0.7-1.0) mg/dL Estim Creat Clear Calc 44 ml/min Estimated GFR 51 L (59 - ) Glucose 143 H (65-110) mg/dL Calcium 9.6 (8.4-10.2) mg/dL Total Bilirubin 0.3 (0.2-1.3) mg/dL AST 45 H (14-36) U/L ALT 45 H (6-35) U/L Alkaline Phosphatase 88 (38-126) U/L Troponin I < 0.012 (0.000-0.034) ng/mL Total Protein 7.0 (6.3-8.2) g/dL Albumin 4.2 (3.5-5.1) g/dL Lipase 229 (23-300) U/L Critical Care Time Critical Care Time Critical Care Time: Yes Time Type: Intermittent Initial evaluation, discuss w/ involved parties, attempting to gather old records: 10 minutes Documenting medical record: 5 minutes Review of results (EKG's, labs, imaging): 5 minutes Serial repeat bedside evaluation: 10 minutes Discussing case with multiple memebers of the care team and consultants: 5 minutes Total Critical Care Time: 35 Discharge Plan Discharge Clinical Impression: Paroxysmal SVT (supraventricular tachycardia) Patient Disposition: Home Condition: Improved Instructions: Antibiotic Form Additional Instructions: Follow-up with your neonatal intensive care unit nurse in 2-3 days. Return with any emergent concerns of recurrent symptoms or if any new issues at any point. Patient Language: [place] Leonean Prescriptions: No Action Eliquis 5 mg Tablet 5 mg PO Q12HR Qty: 60 0RF diltiazem HCl 120 mg Capsule,Extended Release 24 Hr 120 mg PO QAM Qty: 30 0RF calcium 600 mg Capsule 600 mg PO HS magnesium 500 mg Tablet 500 mg PO HS cholecalciferol (vitamin D3) 25 mcg (1,000 unit) Tablet 25 mcg PO HS multivit with min-folic acid 0.4 mg Tablet 1 tablet PO HS mecobalamin (vitamin B12) 1,000 mcg Tablet,Chewable 1,000 mcg PO HS PreserVision AREDS 4,296 mcg-226 mg-90 mg capsule 1 cap PO .q12hr hyoscyamine sulfate 0.125 mg tablet, sublingual 0.125 mg PO QID PRN (Reason: abd pain) Qty: 90 1RF levothyroxine 100 mcg tablet See Rx Instructions .ROUTE .COMPLEX Qty: 90 1RF Dose Instruction: TAKE 1 TABLET BY MOUTH EVERY DAY Rx Instructions: TAKE 1 TABLET BY MOUTH EVERY DAY Viberzi 100 mg tablet 100 mg PO .pc BID Qty: 180 3RF Follow-up/Referrals: Raisa Chirinos MD [Primary Care Provider, Family Practice] Time of Disposition: 20:57
== END 2025-03-05 21:25 | disposition home or self-care (01) ==
PROVIDERS: Emergency Medicine; Emergency Provider Student in an Organized Health Care Education/Training Program; PCP Family Medicine
DX: I47.10 Supraventricular tachycardia, unspecified (principal); M81.0 Age-related osteoporosis without current pathological fracture; E03.9 Hypothyroidism, unspecified; R94.31 Abnormal electrocardiogram [ECG] [EKG]; Z79.01 Long term (current) use of anticoagulants; Z79.899 Other long term (current) drug therapy
CPT/HCPCS: 36415; 80053; 83690; 84484; 85025; 85610; 85730; 93005; 99284; J0153; J1163; J7030